=== PATIENT | female | born 1930 | race Hispanic/Latino ===

== ENCOUNTER 2017-04-19 18:56 | Inpatient (IN) | payer MEDICARE ==
[2017-04-19 19:10] VITALS: BMI 18.8
[2017-04-19 20:42] LABS: BASO # 0.03 K/mm3 (0.0-2.0); BASO % 0.4 % (0.0-3.0); GRAN # 4.07 (1.4-6.5); GRAN % 53.3 % (50.0-68.0); HEMOGLOBIN 10.9 g/dL (12.0-16.0); LYMPH % 38.7 % (22.0-35.0); MEAN CELL VOLUME 92.5 fl (80.0-105.0); MEAN CORPUSCULAR HEMOGLOBIN 29.1 pg (25.0-35.0); MEAN CORPUSCULAR HGB CONC 31.4 g/dl (31.0-37.0); MEAN PLATELET VOLUME 10.1 fl (7.0-11.0); MONO # 0.6 (0.1-0.6); MONO % 7.6 % (1.0-6.0); RBC 3.75 10^6/uL (3.5-6.1); RED CELL DISTRIBUTION WIDTH 16.4 % (11.5-14.5); WHITE BLOOD COUNT 7.6 10^3/ul (4.5-11.0)
[2017-04-19 20:53] LABS: ALB/GLOB RATIO 1.2 (1.1-1.8); ALBUMIN 3.7 g/dL (3.0-4.8); ALT/SGPT 34 U/L (7-56); AST/SGOT 28 U/L (14-36); BLOOD UREA NITROGEN 29 mg/dL (7-21); CALCIUM 9.9 mg/dL (8.4-10.5); GFR AFRICAN-AMERICAN > 60; GFR NON-AFRICAN AMERICAN 59
[2017-04-19 21:06] LABS: ACETAMINOPHEN < 10.0 ug/ml (10.0-20.0); SALICYLATE < 1 mg/dL (2.0-20.0)
[2017-04-19 23:04] LABS: URINE BILIRUBIN NEGATIVE (NEGATIVE); URINE BLOOD TRACE-INTACT (NEGATIVE); URINE GLUCOSE (UA) NEGATIVE (NEGATIVE); URINE LEUKOCYTE ESTERASE SMALL Leu/uL (NEGATIVE); URINE NITRATE NEGATIVE (NEGATIVE); URINE PROTEIN TRACE mg/dL (<30 mg/dL); URINE UROBILINOGEN 0.2 E.U./dL (<1 E.U./dL)
[2017-04-19 23:08] LABS: URINE APPEARANCE SL CLOUDY (CLEAR); URINE COLOR YELLOW (YELLOW)
[2017-04-19 23:15] LABS: URINE BACTERIA MOD (NEG); URINE FINE GRANULAR CAST 0 - 2 /hpf (0-2); URINE WBC 25 - 30 /hpf (0-6)
[2017-04-19 23:42] LABS: BARBITURATES, UR NEGATIVE (NEGATIVE); BENZODIAZEPINES, UR NEGATIVE (NEGATIVE); OPIATES, UR NEGATIVE (NEGATIVE); PHENCYCLIDINE, UR NEGATIVE (NEGATIVE)
--- NOTE | 2017-04-20 01:00 | ED PDOC ---
Arrival/HPI <Baldo Medrano - Last Filed: 04/20/17 01:36> - General Historian: Patient, Correction <Purnima Camacho - Last Filed: 04/20/17 02:43> - General Chief Complaint: Psychiatric Evaluation Time Seen by Provider: 04/19/17 19:46 - History of Present Illness Narrative History of Present Illness (Text): 04/20/17 00:50 86-year-old female with a history of dementia and COPD presents today sent in from [facility] for evaluation of aggressive behavior. Patient denies any complaints. Patient is alert only to person. Denies chest pain or shortness of breath denies abdominal pain. Denies urinary symptoms. Patient states she does not know where she is or why she is here. (Purnima Camacho) Past Medical History - Provider Review Nursing Documentation Reviewed: Yes - Travel History Have you recently traveled outside [place] w/in the past 3 mons?: No - Tetanus Immunization Tetanus Immunization: Unknown - Reproductive Menopause: No - Cardiac Hx Cardiac Disorders: Yes Hx Congestive Heart Failure: Yes Hx Hypertension: Yes Other/Comment: cardiomyopathy,mitral valve insufficiency - Pulmonary Hx Respiratory Disorders: Yes Hx Chronic Obstructive Pulmonary Disease (COPD): Yes - Neurological Hx Neurological Disorder: Yes Hx Dementia: Yes Hx Seizures: Yes Other/Comment: cognitive communication deficit - Gastrointestinal Hx Gastrointestinal Disorders: Yes Hx Gastroesophageal Reflux: Yes - Psychiatric Hx Substance Use: No <Purnima Camacho - Last Filed: 04/20/17 02:43> Family/Social History - Physician Review Nursing Documentation Reviewed: Yes Family/Social History: Unknown Family HX Smoking Status: Unknown If Ever Smoked Hx Alcohol Use: No Hx Substance Use: No <Purnima Camacho - Last Filed: 04/20/17 02:43> Allergies/Home Meds <Baldo Medrano - Last Filed: 04/20/17 01:36> <Purnima Camacho - Last Filed: 04/20/17 02:43> Allergies/Adverse Reactions: Allergies No Known Allergies Allergy (Verified 04/19/17 19:09) Review of Systems - Review of Systems Systems not reviewed;Unavailable: Altered Mental Status Respiratory: absent: SOB, Cough Cardiovascular: absent: Chest Pain Gastrointestinal: absent: Abdominal Pain, Vomiting Genitourinary Female: absent: Dysuria, Frequency Musculoskeletal: absent: Arthralgias, Back Pain Skin: absent: Rash Neurological: absent: Headache <Purnima Camacho - Last Filed: 04/20/17 02:43> Physical Exam Vital Signs Reviewed: Yes Temperature: Afebrile Blood Pressure: Normal Pulse: Regular Respiratory Rate: Normal Appearance: Positive for: Well-Appearing, Non-Toxic, Comfortable Pain Distress: None Mental Status: Positive for: other (alert x 1) - Systems Exam Head: Present: Atraumatic Mouth: Present: Moist Mucous Membranes Neck: Present: Normal Range of Motion Respiratory/Chest: Present: Clear to Auscultation, Good Air Exchange. No: Respiratory Distress, Accessory Muscle Use Cardiovascular: Present: Regular Rate and Rhythm, Normal S1, S2. No: Murmurs Abdomen: No: Tenderness, Distention, Rebound, Guarding Back: Present: Normal Inspection Upper Extremity: Present: Normal ROM Lower Extremity: Present: Normal ROM Skin: Present: Warm, Dry, Normal Color. No: Rashes Psychiatric: Present: Alert, Oriented x 3 <Purnima Camacho - Last Filed: 04/20/17 02:43> Vital Signs Temp Pulse Resp BP Pulse Ox 04/19/17 19:32 97.7 F 98 H 18 142/84 99 Medical Decision Making <Baldo Merdano - Last Filed: 04/20/17 01:36> <Purnima Camacho - Last Filed: 04/20/17 02:43> ED Course and Treatment: 04/20/17 02:32 86-year-old female presents for psychiatric evaluation. Patient is alert only to person. Denies any complaints CBC within normal limits CMP within normal limits Urinalysis shows positive nitrates cxr; no infiltrate blood cultures urine cultures pt with UTI; will start rocephin; pt with ams hx of dementia; placed on 1:1. will admit observational status for UTI , AMS, with psych and neuro consult. case discussed with dr. stroud; accepts observational status admission. impression; uti, ams admit observational status to med/surg (Purnima Camacho) - Lab Interpretations Lab Results: 04/19/17 20:30 04/19/17 20:30 Lab Results 04/19/17 22:50: Urine Opiates Screen Negative, Urine Methadone Screen Negative, Ur Barbiturates Screen Negative, Ur Phencyclidine Scrn Negative, Ur Amphetamines Screen Negative, U Benzodiazepines Scrn Negative, U Oth Cocaine Metabols Negative, U Cannabinoids Screen Negative 04/19/17 22:50: Urine Color Yellow, Urine Appearance Sl cloudy, Urine pH 6.0, Ur Specific [place] >= 1.030, Urine Protein Trace H, Urine Glucose (UA) Negative , Urine Ketones Trace H, Urine Blood Trace-intact H, Urine Nitrate Negative, Urine Bilirubin Negative, Urine Urobilinogen 0.2, Ur Leukocyte Esterase Small H , Urine RBC 2 - 5, Urine WBC 25 - 30, Ur Epithelial Cells 4 - 5, Urine Bacteria Mod, Fine Granular Casts 0 - 2 04/19/17 20:30: Alcohol, Quantitative < 10 04/19/17 20:30: Salicylates < 1 L, Acetaminophen < 10.0 L 04/19/17 20:30: Sodium 141, Potassium 3.9, Chloride 109 H, Carbon Dioxide 21, Anion Gap 15, BUN 29 H, Creatinine 0.9, Est GFR ( Amer) > 60, Est GFR ( Non-Af Amer) 59, Random Glucose 91, Calcium 9.9, Total Bilirubin 0.3, AST 28, ALT 34, Alkaline Phosphatase 108, Total Protein 6.8, Albumin 3.7, Globulin 3.0, Albumin/Globulin Ratio 1.2 04/19/17 20:30: WBC 7.6, RBC 3.75, Hgb 10.9 L, Hct 34.7 L, MCV 92.5, MCH 29.1, MCHC 31.4, RDW 16.4 H, Plt Count 215, MPV 10.1, Gran % 53.3, Lymph % (Auto) 38.7 H, [place] % (Auto) 7.6 H, Eos % (Auto) 0.0 L, Baso % (Auto) 0.4, Gran # 4.07 , Lymph # (Auto) 3.0, [place] # (Auto) 0.6, Eos # (Auto) 0.0, Baso # (Auto) 0.03 - RAD Interpretation Radiology Orders: 04/19/17 19:47 CHEST PORTABLE [RAD] Stat - PA / HIDE SORTER / Resident Statement KATERYNA has reviewed & agrees with the documentation as recorded. KATERYNA has examined the patient and agrees with the treatment plan. <Baldo Medrano - Last Filed: 04/20/17 01:36> Disposition/Present on Arrival <Baldo Medrano - Last Filed: 04/20/17 01:36> - Present on Arrival Any Indicators Present on Arrival: No History of DVT/PE: No History of Uncontrolled Diabetes: No Urinary Catheter: No History of Decub. Ulcer: No History Surgical Site Infection Following: None - Disposition Have Diagnosis and Disposition been Completed?: Yes Disposition Time: 02:42 Patient Plan: Observation <Purnima Camacho - Last Filed: 04/20/17 02:43> - Disposition Diagnosis: Urinary tract infection, Altered mental status Disposition: HOSPITALIZED Condition: FAIR
[2017-04-20] MEDS ORDERED: cefTRIAXone 1 gm 1 GM/100 ML BAG IVPB STA (02:32)
--- NOTE | 2017-04-20 08:38 | RAD ---
HISTORY: pes eval COMPARISON: No prior. FINDINGS: LUNGS: Dense likely pleural calcifications seen scattered left greater than right mid lung zones and likely at the right greater than left base as well. A definite infiltrate is not identified although would be difficult to completely exclude one underlying left sided pleural calcifications near the perihilar region. Clinically correlate further. PLEURA: No significant pleural effusion identified, no pneumothorax apparent. Pleural calcifications as discussed above. CARDIOVASCULAR: Mild cardiomegaly is suspected however follow-up technique limits evaluation. No pulmonary vascular derangement identified. OSSEOUS STRUCTURES: No significant abnormalities. VISUALIZED UPPER ABDOMEN: Normal. OTHER FINDINGS: None. IMPRESSION: Multifocal pleural calcifications are identified concentrated at the bilateral medial low mid lung zones bilaterally, left greater than right and likely minimally at the bilateral bases as well. Underlying infiltrate or atelectasis is difficult to completely exclude left perihilar region though this is not definite. Clinically correlate further. At least borderline cardiomegaly is suggested. No pulmonary vascular derangement.
--- NOTE | 2017-04-20 09:40 | CARD ---
APPROVED REPORT EKG Measurement Heart [id number] <Conclusion> Normal sinus rhythm Left axis deviation Left bundle branch block
--- NOTE | 2017-04-20 16:11 | CON ---
DATE: 04/20/2017 PULMONARY CONSULTATION REASON FOR CONSULTATION: Abnormal chest x-ray. REFERRING PHYSICIAN: Bear Gordillo DO HISTORY OF PRESENT ILLNESS: History was obtained via extensive discussion with the emergency room nurse. I have also reviewed the chart at length. The patient does not appear to be an adequate historian. The patient is an 86-year-old female, with past medical history significant for chronic obstructive pulmonary disease, hypertension, who presents [facility] for evaluation of aggressive behavior. In the emergency room, the patient was also noted to have a urinary tract infection. She was thus admitted for additional evaluation. Again, I did discuss the case with the emergency room nurse at length. There is no history of shortness of breath at rest, dyspnea on exertion, cough, or sputum production. There is also no history of chest pain, coughing up of blood, or chest pain - made worse with deep respirations. There is no history of temperatures, chills or infectious exposure. There is no history of night sweats, weight loss or appetite change prior to the above events. No history of leg or calf pains. No history of syncope or diaphoresis. No history of recent travel or trauma. REVIEW OF SYSTEMS: No history of nausea, vomiting or diarrhea. No acute urinary symptoms. No new musculoskeletal complaints. Rest of the review of systems negative. ALLERGIES: NO KNOWN ALLERGIES. SOCIAL HISTORY: Positive for tobacco and negative for alcohol. FAMILY HISTORY: No inheritable diseases. HOME MEDICATIONS: Not listed in the current chart. PHYSICAL EXAMINATION: GENERAL: The patient appears very comfortable this morning. She is not short of breath at rest. VITAL SIGNS: Temperature is 97.8, pulse 74, respirations 18, blood pressure 149/46. Oxygen saturation on room air is 96-99%. HEENT: Normocephalic, atraumatic. No JVD. CARDIOVASCULAR: Systolic ejection murmur at the lower left sternal border. No S3 gallop. LUNGS: Clear bilaterally. EXTREMITIES: No clubbing, cyanosis or edema. Calves are nontender to palpation. GI: Abdomen is soft, nontender and nondistended. Bowel sounds are positive. SKIN: No acute rash. NEUROLOGIC: Limited at the present time. PERTINENT LABORATORY DATA: Chest x-ray was done yesterday and reviewed. There are chronic-appearing bilateral pleural calcifications. There are no acute infiltrates. CBC: White count 7.6, hemoglobin 10.9, hematocrit 34.7, platelets of 215,000. Complete metabolic profile: Chloride 109, BUN 29. Rest of the metabolic profiles within normal limits. Urinalysis: Urine bacteria moderate, urine leukocyte esterase - small. IMPRESSION: 1. Altered mental status. 2. Urinary tract infection. 3. Chronic obstructive pulmonary disease. 4. Abnormal chest x-ray. PLAN: Again, I did discuss the case with the emergency room nurse at length. The patient presents to [facility] - for evaluation of aggressive behavior. In the emergency room, the patient was diagnosed with urinary tract infection, and thus admitted. At this point in time, there is no history of any pulmonary symptoms. The patient's lungs are clear on physical exam. Oxygen saturation on room air is 96-99%. I did review the chest x-ray as above. There are chronic-appearing bilateral pleural calcifications noted. The patient does probably have some history of asbestos exposure. Again, I do not appreciate any new or significant infiltrates. At this point in time, no additional pulmonary intervention is needed or warranted. I will thus follow up on this patient again as requested. Thank you very much for this pulmonary consultation. I will discuss the above with Dr. Gordillo. Barrie Seals MD MTDD
--- NOTE | 2017-04-20 17:57 | CON ---
DATE: 04/20/2017 NEUROLOGY CONSULTATION CHIEF COMPLAINT: Altered mental status. HISTORY OF PRESENT ILLNESS: History was obtained by extensive discussion with ER nurse as well as the chart since the patient is a poor historian. She is an 86-year-old woman with past medical history of chronic obstructive pulmonary disease, hypertension, who presented to [facility], transferred from a group home for evaluation of aggressive behavior. In the ER, she was noted to have a mild urinary tract infection for which she is on antibiotics. She denies any change in sense of vision, taste, or smell. Denies any history of syncope or diaphoresis. No recent travel or trauma. No seizure-like episodes. She has definitely cognitive impairment during my neuro examination. In addition, her oxygen saturation is 99%. Chest x-ray was done yesterday and reviewed. There is chronic appearing bilateral pleural calcifications, no acute infiltrates. Currently, she knows person and place, she does not know the year. Recall after 5 minutes is 0 out of 3. Poor attention span. Slow thought process and came with moderate cognitive impairment. PAST MEDICAL HISTORY: COPD, history of hypertension, and dementia. REVIEW OF SYSTEMS: A 14-point review of systems is negative except as per the HPI. SOCIAL HISTORY: No illicit drug use, smoking, or EtOH abuse. ALLERGIES: NO KNOWN DRUG ALLERGIES. MEDICATIONS: Reviewed by nurse's reconciliation sheet. PHYSICAL EXAMINATION: VITAL SIGNS: Temperature 97.8, pulse rate of 67, blood pressure /58, respiratory rate of 18, and oxygen saturations 100% on room air. GENERAL: The patient is sitting up in bed, in no acute distress. HEENT: Atraumatic and normocephalic. PERRLA. Extraocular muscles intact. NECK: Supple. No JVD, no adenopathy noted. LUNGS: Clear to auscultation. No adventitious sounds. HEART: S1 and S2. Normal rate and rhythm. No murmurs, rubs, or gallops. ABDOMEN: Soft, nontender, and nondistended. Bowel sounds present. EXTREMITIES: No clubbing. No cyanosis. Peripheral pulses 2+ felt bilaterally. NEUROLOGIC: The patient is alert and oriented to person and place, not much to month or year. Recall after 5 minutes is 0 out of 3. Poor attention span. Slow thought process. Gets agitated when asking too many questions. Speech is fluent without errors. Cranial nerves II through XII intact. Motor: Slightly increased tone throughout. Moves all extremities equally. No pronator drift seen. Sensory: Withdraws to localized noxious stimulus. Light touch intact bilaterally. Proprioception is intact bilaterally. DTRs are 1+ throughout. Coordination and gait deferred for now. LABORATORY DATA: Sodium 141, potassium 3.9, chloride 109, carbon dioxide 21, BUN of 29, creatinine 0.9, random glucose of 91. ASSESSMENT AND PLAN: This is an 86-year-old woman with past medical history of chronic obstructive pulmonary disease, hypertension, and cognitive impairment, came from group home for aggressive behavior, most likely it is urinary tract infection exacerbating delirium superimposed on dementia with behavior disturbance. CAT scan of the head showed no acute intracranial abnormalities. She is clinically stable. If she gets agitated at night, could consider a low-dose Seroquel at 12.5 p.o. at nighttime. At this time, recommend: 1. To treat her mild UTI. 2. She is mildly dehydrated, give her IV hydration. 3. Thiamine 100 mg p.o. daily for neuronal cortical activation. 4. Delirium precautions. 5. Avoid sedative medications and get PT and OT evaluation. Once again, thank you for this consult. Chon Brennan MD
--- NOTE | 2017-04-20 19:22 | HP ---
HISTORY OF PRESENT ILLNESS: I was called down to the Emergency Room to look at this nice 86-year-old female, who is completely confused. She is [facility] in from a [facility]. She is an 86-year-old female with history of dementia and COPD, who presents with aggressive behavior and confusion. She is seen in the Emergency Room, not knowing what is going on and where she is or where she is from. PAST MEDICAL HISTORY: CHF, cardiomyopathy, mitral valve insufficiency, hypertension, COPD, dementia, seizures, cognitive communication deficit, gastrointestinal disorders or GERD. FAMILY HISTORY: Unknown family history. SOCIAL HISTORY: No alcohol, no drugs and never smoked. ALLERGIES: NO KNOWN DRUG ALLERGIES. MEDICATIONS: We have no medicine list with us at all. REVIEW OF SYSTEMS: She has altered mental status. She cannot answer questions but she is not short of breath, no cough. No chest pain, no abdominal pain. No nausea, vomiting or problems urinating. No arthralgias. No apparent rashes, no headaches. She is alert, confused, well appearing. PHYSICAL EXAMINATION: HEENT: Head is atraumatic, normocephalic. HEART: Regular rate. Normal S1, S2. LUNGS: Decreased breath sounds with clear to auscultation. ABDOMEN: Soft, nontender. Positive bowel sounds. No guarding, no rebound. EXTREMITIES: No edema. NEUROLOGIC: She is alert and oriented x1 maybe. VITAL SIGNS: Temperature 97.7, pulse 98, respiratory rate 18, blood recqhmhh113/84, 99% O2 sat. LABORATORY DATA: She had multiple tests. She has urine, which has moderate bacteria. Toxicology, which is clean. She has 141 sodium, potassium 3.9, BUN 29, creatinine 0.9, GFR is greater than 59, sugar is 91, calcium is 9.9, total bilirubin is 0.3, AST is 28, ALT is 34, alkaline phosphatase 108, total protein 6.8, albumin is 3.7. White count is 7.6, hemoglobin 10.9, hematocrit 34.7, platelets of 215. She has a chest x-ray, which shows multifocal pleural calcifications, bilateral bases; underlying infiltrates; borderline cardiomegaly. She was consult with Neurology for confusion, Infectious Disease for infections, Pulmonary for her possible pneumonia and Psychiatry for aggressive behavior. So be needed to be changed to inpatient status. It will take us more than 2 days to get her improved. We will check her labs tomorrow. Change in mentation, confusion, urinary tract infection, pneumonia. Bear Gordillo DO
[2017-04-20] MEDS ORDERED: Pneumococcal 23-Valent Vaccine IM ONE (21:02)
[2017-04-20] MEDS ORDERED: Influenza Vaccine 60 mcg/0.5 mL SYR (4YR UP) IM ONE (21:02)
[2017-04-20] MEDS: Cefepime 1gm in NS 100ml 1 GM/100 ML BAG IVPB SCH (22:14)
--- NOTE | 2017-04-21 05:38 | HP ---
HISTORY OF PRESENT ILLNESS: I saw her this morning in the ER. She comes in with a history from the [place] [facility] of aggressive behavior. She is presently confused. Difficult to have a conversation with. PAST MEDICAL HISTORY: She has a past medical history of dementia, COPD, CHF, cardiomyopathy, mitral valve insufficiency, hypertension, COPD, dementia, seizures, cognitive communication deficit, gastroesophageal reflux. FAMILY HISTORY: Unknown. SOCIAL HISTORY: Questionable history of smoking. No alcohol. No drugs. ALLERGIES: NO KNOWN DRUG ALLERGIES. MEDICATIONS: She takes lisinopril, Lasix, potassium, aspirin. REVIEW OF SYSTEMS: She has altered mental status. No apparent shortness of breath,cough, chest pain, abdominal pain. No nausea or vomiting. No arthralgias. No rashes. No headaches. PHYSICAL EXAMINATION: GENERAL: She is alert, talking, confused, well appearing, non toxic, at this time not combative. VITAL SIGNS: 97.7 temperature, 98 pulse, 18 respiratory rate, 142/84 blood pressure, O2 sat on room air. HEENT: Head is atraumatic, normocephalic. Extraocular muscles are intact. Throat is moist. NECK: Supple. HEART: Regular rate. Normal S1 and S2. LUNGS: Decreased breath sounds ABDOMEN: Soft, nontender. Positive bowel sounds. No guarding. No rebound. No CVA tenderness. EXTREMITIES: With no edema. SKIN: Warm and dry. No apparent ulcers or rashes appreciated. NEUROLOGIC: Alert and oriented x1. LABORATORY DATA: She had multiple tests. She has a urine drug screen which is normal. Urine, which has moderate bacteria for UTI. Sodium 141, potassium 3.9, BUN 29, creatinine 0.9, GFR greater than 60, sugar is 91, calcium is 11.9. Total bilirubin is 0.3, AST is 20, ALT of 34, alkaline phosphatase 108. Total protein is 6.8. Albumin is 3.7. White count is 7.6, hemoglobin 10.9, hematocrit 34.7, platelets are 215. She had a chest x-ray, which showed multifocal pleural calcifications at the bilateral medial lobe midlung zones, left greater than right and likely at the bilateral bases as well. Underlying infiltrates in perihilar region. She is here with possible pneumonia, urinary tract infection, change in mentation, combative behavior. She got consults from Neurology, Infectious Disease, Pulmonology and Psychiatry. To be on her aspirin, Rocephin, Seroquel, Zestril. She got physical therapy in the unit. We will see how well we can get her back to normal and get her back to the [place] [facility]. Bear Gordillo DO MTDLilly
--- NOTE | 2017-04-21 06:15 | CON ---
DATE: 04/20/2017 The patient was seen early this morning in the emergency room. CHIEF COMPLAINT: Weakness. HISTORY OF PRESENT ILLNESS: This is an 86-year-old female with a history of dementia, chronic obstructive lung disease from the snf and change in behavior was noted, was sent to the emergency room for further treatment. The patient has a history of congestive heart failure, COPD, coronary artery disease, history of seizures, chronic obstructive lung disease, GERD, dementia, admitted with a diagnosis of altered mental status and urinary tract infection. Infectious Disease consultation requested. REVIEW OF SYSTEMS: Reveals no fever has been documented and no chest pain, no abdominal pain, diarrhea or constipation. PAST MEDICAL HISTORY: Significant for dementia, COPD, congestive heart failure, coronary artery disease, seizures, GERD. PAST SURGICAL HISTORY: Noncontributory. ALLERGIES: THE PATIENT HAS NO KNOWN ALLERGIES. MEDICATIONS: In the snf are reviewed, include Lasix, lisinopril, pantoprazole. PHYSICAL EXAMINATION: VITAL SIGNS: On exam, the patient's temperature is 97, blood pressure is 149/40, respiratory rate of 18, heart rate was up to 98. HEENT: Unremarkable. NECK: Supple. LUNGS: Have decreased breath sounds. HEART: Normal S1, S2. ABDOMEN: Soft, nontender. LABORATORY DATA: Reveals a white count of 7.6, hemoglobin of 10, platelets of 215, granulocytes of 53%, BUN of 29, creatinine of 0.9. Urinalysis reveals to be positive for 25-30 and moderate bacteria. Microbiology is pending. ASSESSMENT AND PLAN: This is an 86-year-old female, snf patient with a history of dementia, chronic obstructive lung disease, coronary artery disease, seizures, gastroesophageal reflux disease, dementia, admitted with a change of mental status, more aggressive behavior and with positive urinalysis, unclear whether she has any urinary symptoms. 1. Urinary tract infection. We will order Maxipime 1 g IV q. 8 hours pending blood cultures, urine cultures, clinical response. We will make further recommendations. The patient did have a chest x-ray, which was reported by Dr. Miguel Jaime and . consultation is reviewed and appreciated. We will follow closely with you. Pending panculture results and clinical response on cefepime. Ramone Grant MD
[2017-04-21 07:32] LABS: MEAN CELL VOLUME 92.2 fl (80.0-105.0); MEAN CORPUSCULAR HEMOGLOBIN 29.4 pg (25.0-35.0); MEAN CORPUSCULAR HGB CONC 31.9 g/dl (31.0-37.0); MEAN PLATELET VOLUME 10.3 fl (7.0-11.0); RBC 3.74 10^6/uL (3.5-6.1); WHITE BLOOD COUNT 6.9 10^3/ul (4.5-11.0)
[2017-04-21 08:03] LABS: ALB/GLOB RATIO 1.1 (1.1-1.8); ALBUMIN 3.2 g/dL (3.0-4.8); ALT/SGPT 21 U/L (7-56); AST/SGOT 26 U/L (14-36); BLOOD UREA NITROGEN 19 mg/dL (7-21); CALCIUM 9.4 mg/dL (8.4-10.5); GFR AFRICAN-AMERICAN > 60; GFR NON-AFRICAN AMERICAN > 60
[2017-04-21] MEDS: Pantoprazole 40 mg EC Tab PO SCH ×2 (11:21→11:43)
[2017-04-21] MEDS: Cefepime 1gm in NS 100ml 1 GM/100 ML BAG IVPB SCH (14:00)
[2017-04-21] MEDS ORDERED: Vancomycin 1gm in NS 250ml 1 GM/250 ML BAG IVPB STA (23:14)
--- NOTE | 2017-04-22 02:58 | PN ---
DATE: 04/21/2017 SUBJECTIVE: Patient is seen in bed, in no acute distress, nontoxic. PHYSICAL EXAMINATION: VITAL SIGNS: Temperature of 98, blood pressure 140/50, respiratory rate 20, heart rate of 81. HEENT: Unremarkable. NECK: Supple. LUNGS: Decreased breath sounds. HEART: Normal S1, S2. ABDOMEN: Soft, nontender. LABORATORY DATA: Reveals a white count of 6.9, hemoglobin of 11, platelets of 204. Chemistry revealed BUN of 19, creatinine 0.8. Urinalysis is noted. Microbiology reveals the urine cultures to have gram-positive cocci. Final identification and sensitivity is pending. ASSESSMENT AND PLAN: This is an 86-year-old female with history of dementia, chronic obstructive lung disease, at longterm, change of behavior, who is admitted with gram-positive cocci urinary tract infection, currently on Maxipime. We will give one dose of vancomycin and wait for further identification and sensitivity. Patient is admitted with past medical history of dementia, chronic obstructive lung disease, coronary artery disease, seizures, gastroesophageal reflux disease, and change in mental status, more aggressive behavior, and positive urinalysis. We will give a dose of vancomycin. Awaiting for identification of the gram-positive cocci in the urine. Ramone Grant MD
[2017-04-22 06:51] LABS: HEMOGLOBIN 10.5 g/dL (12.0-16.0); MEAN CELL VOLUME 90.9 fl (80.0-105.0); MEAN CORPUSCULAR HEMOGLOBIN 29.8 pg (25.0-35.0); MEAN CORPUSCULAR HGB CONC 32.8 g/dl (31.0-37.0); MEAN PLATELET VOLUME 10.1 fl (7.0-11.0); RBC 3.52 10^6/uL (3.5-6.1); RED CELL DISTRIBUTION WIDTH 15.8 % (11.5-14.5); WHITE BLOOD COUNT 6.9 10^3/ul (4.5-11.0)
[2017-04-22 07:02] LABS: ALBUMIN 3.1 g/dL (3.0-4.8); ALT/SGPT 24 U/L (7-56); AST/SGOT 28 U/L (14-36); BLOOD UREA NITROGEN 22 mg/dL (7-21); CALCIUM 9.1 mg/dL (8.4-10.5); GFR AFRICAN-AMERICAN > 60; GFR NON-AFRICAN AMERICAN > 60
[2017-04-22] MEDS: Cefepime 1gm in NS 100ml 1 GM/100 ML BAG IVPB SCH ×4 (08:25→14:53)
--- NOTE | 2017-04-22 08:47 | CON ---
DATE: 04/21/2017 She is being seen today for a consultation. PRESENTATION: The patient is an 86-year-old white female, seen at bedside, one-to-one in attendance. The patient was admitted to the hospital from [facility] on 04/20/2017. She has a history of dementia and COPD and was sent in for an evaluation of aggressive behavior. She was found to have a urinary tract infection in the emergency room of gram-positive cocci, which is currently being treated for. Consultation was called due to altered mental status. The patient when seen was extremely confused. She answered to her name, believed me to be related to her that we were at home. She was very concerned that I was covered with bugs as she was concerned about her one-to-one. She said there was bugs everywhere that we are going to from all the bug bites, very, very concerned and very, very confused. She was absolutely unable to hold any kind of conversation or respond appropriately to any questions. She just kept going along her track of what she felt was going on and whom she believed me to be. PHYSICAL EXAMINATION: VITAL SIGNS: Current vital signs include temperature of 97.8, blood pressure of 122/38, respiratory rate of 20, and O2 sat of 96%. CURRENT MEDICATIONS: Include Seroquel 12.5 mg one at bedtime, Protonix, Zestril, Colace, Maxipime, and aspirin. I added a p.r.n. of lorazepam 0.5 mg b.i.d. p.r.n. p.o. or IM as it appears that the patient may become agitated. According to the nurses' notes, she has been fairly cooperative with the one-on-one there; however, she has pulled out her IV and has not allowed it to be restored. According to Social Work notes, she is able to return to the [facility] once medically cleared. MENTAL STATUS EXAM: It was difficult to get a mental status on this patient. I could not get any kind of a history. She has no ability to be able to follow a conversation or respond appropriately. She really was very preoccupied by what she felt was going on, the bugs, and very concerned about health and safety of the people in her room. DIAGNOSTIC IMPRESSION: Dementia, probably further exacerbated by the presence of urinary tract infection. PLAN: The patient does not appear in terms of anything in her behavior to be suicidal or homicidal; however, she does have a one-to-one mostly for safety, and she is cooperative with this intervention. I did add a p.r.n. of Ativan should it be needed. She is on Seroquel at bedtime. We will continue to follow. Dr. Antoine will see this patient tomorrow. Thank you for the consult. Adry Mccullough APN Suzy Antoine MD
--- NOTE | 2017-04-22 08:50 | PN ---
DATE: 04/21/2017 SUBJECTIVE: I saw her sitting resting in bed. She has a one-to-one with psych issues. Worried about her. She is mentally. She has multiple consults, Neurology, Infectious Disease, Pulmonary. I also called in Psychiatry. She is alert and pleasant. PHYSICAL EXAMINATION: VITAL SIGNS: 97.8 temp, 71 pulse, 122/38 blood pressure, 20 respiratory rate, 96% O2 sat on room air, but confused. HEENT: Head is atraumatic, normocephalic. HEART: Regular rate. LUNGS: Decreased breath sounds, but clear. ABDOMEN: Soft. EXTREMITIES: No edema. MEDICATIONS: She is currently on aspirin, Colace, Maxipime, Protonix, Seroquel and Zestril. She has a 6.9 white count, 11 hemoglobin, 34.5 hematocrit with a 204 platelets. She has 140 sodium, potassium 3.8, BUN 19, creatinine 0.8, which is better, GFR is greater than 60, sugar is 64, calcium is 9.4, total bili is 0.4, AST is 26, ALT is 21, alk phos 111, total protein 6.3. Urine with moderate bacteria. ASSESSMENT AND PLAN: She is on intravenous antibiotics. She is on a one-to-one. She might need 5B. She has a urinary tract infection, possible pneumonia, chronic obstructive pulmonary disease history, change in mentation, confusion. Neurology said to treat her with the urinary tract infection, intravenous fluids, thiamine. Continue with aggressive treatment and care. Bear Gordillo DO MTDLilly
[2017-04-22] MEDS: Pantoprazole 40 mg EC Tab PO SCH (10:21)
[2017-04-22] MEDS ORDERED: Cefepime 1gm in NS 100ml 1 GM/100 ML BAG IVPB SCH (22:00)
--- NOTE | 2017-04-22 22:32 | PN ---
DATE: SUBJECTIVE: The patient is an 86-year-old female with history of Alzheimer dementia. The patient was sent from [facility] for evaluation of change in mental status and aggressive outbursts. The patient was found to have urinary tract infection and was started on antibiotics and was placed on medical floor. Presently, the patient is on one-to-one observation. The patient was initially seen by nurse practitioner, Ms. Mccullough. The patient was started on Seroquel at the nighttime. This chart writer is following up on this patient. The patient presented to be alert, confused. The patient does not know where she is. The patient was making statement "how would you feel if you would be 89 years old, I'm very confused and forgetful." The patient's answers were not related to the questions being asked. The patient was saying random things about Nenzel and about . Collateral information was obtained from the nursing staff as well as one-to-one. As per report, the patient did not sleep well, restless and confused but there is no agitation, no aggression. Medication compliance is good. At the same time, the patient has poor appetite. Vital signs seem to be stable. Temperature 98.6, pulse is 78, blood pressure 135/50, respirations 20, and oxygen saturation is 96. MEDICATIONS: Reviewed. Aspirin, cefepime, Colace, Zestril, Ativan, and Protonix. Seroquel will be increased to 25 mg at the nighttime. MENTAL STATUS EXAMINATION: As this chart writer described, the patient is very confused, randomly saying things which are not related to the topic of the conversation, intermittent eye contact. Thought process seems to be disorganized, tangential, and circumstantial. The patient was not able to comprehend questions about suicidal thoughts or plans. Insight and judgment seem to be very impaired. Impulses are unpredictable. IMPRESSION: Delirium on dementia, which seems to be mildly improving. PLAN: Continue current management. Continue current medications. Seroquel was increased to 25 mg at the nighttime. The patient is currently on one-to-one. Ativan p.r.n. started. Dr. Lange will follow up on this case over this weekend. Should you have any questions, give me a call back. Thank you very much for letting me participate in care of your patient. Suzy Antoine MD [facility] # [id number]
--- NOTE | 2017-04-22 23:44 | PN ---
DATE: 04/22/2017 SUBJECTIVE: The patient is in bed, in no acute distress, was seen earlier this morning in room 562, bed 2. PHYSICAL EXAMINATION: VITAL SIGNS: Temperature is 98, blood pressure is 130/40, respiratory rate of 20. HEENT: Examination of HEENT is unremarkable. NECK: Supple. LUNGS: Have decreased breath sounds. HEART: Normal S1 and S2. ABDOMEN: Soft, nontender. LABORATORY DATA: Laboratory examination reveals a white count of 6.9, hemoglobin of 10, platelets of 209. BUN of 22, creatinine of 0.8. Urinalysis is noted. Microbiology reveals the urine culture has Enterococcus faecalis. The blood cultures are negative. Enterococcus is sensitive to ampicillin. Review of orders revealed the patient to be on cefepime and was given a dose of vancomycin. The blood cultures are negative. ASSESSMENT AND PLAN: An 86-year-old female who has a history of dementia, chronic obstructive lung disease, [facility] patient, change of behavior, who was admitted with Enterococcus urinary tract infection. We will discontinue the cefepime and switch to p.o. ampicillin to complete the therapy for Enterococcus urinary tract infection at 500 mg p.o. q.i.d. x5 days. Ramone Grant MD
[2017-04-23 07:05] LABS: HEMOGLOBIN 10.5 g/dL (12.0-16.0); MEAN CELL VOLUME 93.2 fl (80.0-105.0); MEAN CORPUSCULAR HEMOGLOBIN 29.7 pg (25.0-35.0); MEAN CORPUSCULAR HGB CONC 31.9 g/dl (31.0-37.0); MEAN PLATELET VOLUME 10.3 fl (7.0-11.0); RBC 3.53 10^6/uL (3.5-6.1); RED CELL DISTRIBUTION WIDTH 16.1 % (11.5-14.5); WHITE BLOOD COUNT 7.8 10^3/ul (4.5-11.0)
[2017-04-23 07:28] LABS: ALBUMIN 3.2 g/dL (3.0-4.8); ALT/SGPT 24 U/L (7-56); AST/SGOT 21 U/L (14-36); BLOOD UREA NITROGEN 22 mg/dL (7-21); CALCIUM 9.2 mg/dL (8.4-10.5); GFR AFRICAN-AMERICAN > 60; GFR NON-AFRICAN AMERICAN 59
[2017-04-23] MEDS: Pantoprazole 40 mg EC Tab PO SCH (10:16)
--- NOTE | 2017-04-23 10:25 | PN ---
DATE: 04/23/2017 SUBJECTIVE: The patient is in bed, in no acute distress, nontoxic. PHYSICAL EXAMINATION VITAL SIGNS: Temperature is 97, blood pressure is 150/50, respiratory rate of 18. HEENT: Unremarkable. NECK: Supple. LUNGS: Have decreased breath sounds. HEART: Normal S1 and S2. ABDOMEN: Soft, nontender. LABORATORY DATA: Reveals a white count of 7.8, hemoglobin of 10, platelets of 200. Chemistries reveals a BUN of 22, creatinine of 0.9. Urinalysis is noted and microbiology reveals Enterococcus faecalis in the urine. ASSESSMENT AND PLAN: An 86-year-old female with a history of dementia, chronic obstructive lung disease, assisted patient, change of behavior with enterococcus urinary tract infection, on p.o. ampicillin 100 p.o. q.i.d. x5 days. Ramone Grant MD
--- NOTE | 2017-04-23 13:38 | PN ---
DATE: SUBJECTIVE: I do not see my progress note from yesterday. I know I did it and I saw her. Hopefully, it will populate by tomorrow, sometimes it delays, but for right now she is in the hospital bed. She is alert and confused. She has been trying get out of bed and had been very active over the past 24 hours. She is still on a one-to-one. Hoping for Psychiatry to help us not needing a one-to-one and they will be taking her to . PHYSICAL EXAMINATION: VITAL SIGNS: She has 97 temp, 69 pulse, 150/50 blood pressure, 20 respiratory rate, 98% O2 sat on room air. HEENT: Head is atraumatic, normocephalic. HEART: Regular rate. LUNGS: Clear to auscultation. ABDOMEN: Soft. EXTREMITIES: No edema. LABORATORY DATA: She has a 7.8 white count, 10.5 hemoglobin, 32.9 hematocrit with a 200 platelets. 143 sodium, potassium 3.8, BUN is 22, creatinine 0.9, GFR is 59, sugar is 95, calcium is 9.2, total bili is 0.3, AST is 21, ALT is 24, alk phos 87. MEDICATIONS: She is currently on ampicillin, aspirin, Ativan, Colace, Protonix, Seroquel and Zestril. ASSESSMENT AND PLAN: On the repeat lab tomorrow, CBC we could do a UA, C and S again. I am hoping that we can get help from Psychiatry, so we can get her off the one-to-one. Right now, from what I hear from the one-to-one people, she has been very agitated and acting out and still needs it. Emily Abreu who has delirium and dementia, change in mentation, urinary tract infection, chronic obstructive pulmonary disease. Bear Gordillo DO
--- NOTE | 2017-04-23 14:01 | CON ---
DATE: HISTORY OF PRESENT ILLNESS: The patient is an 86-year-old female with a history of Alzheimer dementia who is being seen on the medical floor by Psychiatry for altered mental status and aggressive outburst. The patient is likely suffering from delirium and her medications have recently been adjusted so that Seroquel was increased from 12.5 mg to 25 mg at bedtime; however, the patient was unable to take the medication last night due to agitation. The patient did wake up multiple times throughout the night and feels restless and attempting to hit her PCP. Continues to be unpredictable. She remains completely disoriented to month, year, location and circumstances. The patient's cefepime IV has been switched to ampicillin 500 mg q.i.d. yesterday. PHYSICAL EXAMINATION VITAL SIGNS: Reviewed and they were temperature 97, pulse 69, blood pressure 150/50, and respirations 20 at 07:30 this morning. LABORATORY DATA: Labs were also reviewed. CBC was notable for hemoglobin and hematocrit of 10.5 and 32.9 respectively. Chemistry 14 derangements include chloride of 110, BUN of 22. MEDICATIONS: Relevant psychiatric medications include Ativan 0.5 mg p.o. b.i.d. p.r.n., the patient received zero doses and Ativan 0.5 mg IM b.i.d. p.r.n., the patient received zero doses. Seroquel 25 mg p.o. at bedtime. The patient did not receive last night dose due to being lethargic. Of note, the patient did receive Seroquel 12.5 mg p.o. at bedtime three days ago. IMPRESSION: Alzheimer dementia was complicated by delirium. PLAN: We will continue with current management including Seroquel at 25 mg at bedtime. Hopefully, the patient will be a little bit more alert today and will be able to take Seroquel dose tonight to help this nighttime confusion and agitation. Psychiatry will continue to follow up with the patient and monitor her behavior and tolerance to medication. Psychiatry will follow up with the patient on 04/24/2017. Rober Lange MD [facility] # [id number]
[2017-04-24] MEDS: Pantoprazole 40 mg EC Tab PO SCH ×2 (09:05→14:47)
--- NOTE | 2017-04-24 12:31 | PN ---
DATE: SUBJECTIVE: I saw her this morning resting comfortably in bed. She actually ate breakfast this morning, which is very good for her. She was up most of the night. She still needs a 1:1, waiting for Psychiatry to help her. MEDICATIONS: She is on ampicillin, aspirin, Ativan, Colace, Protonix, Seroquel, and Zestril. PHYSICAL EXAMINATION: VITAL SIGNS: She has a 97 temperature, 73 pulse, 117/41 blood pressure, 20 respiratory rate, 99% O2 sat on room air. She still needs 1:1. She is still up all night. She still cannot be left alone because it is unsafe. HEENT: Head: Atraumatic, normocephalic. Throat is moist. NECK: Supple. HEART: Regular rate. LUNGS: Decreased breath sounds, but clear. ABDOMEN: Soft. EXTREMITIES: No edema. LABORATORY DATA: She has a 7.8 white count, 10.5 hemoglobin, 32.9 hematocrit with 200 platelets. Diydol414, potassium 3.8, BUN 22, creatinine 0.9, GFR is 59, sugar is 95, calcium is 9.2, total bili is 0.3, AST is 21, ALT is 24, alkaline phosphatase 87, total protein 6.3. We are hoping to get her off from 1:1, once we get the okay from Psychiatry. I would like to see maybe more adjustment in medications because it is the same thing every night. She is up at night, very dangerous to herself. I am glad she is eating this morning. She has Alzheimer's dementia with delirium, agitation. Continue aggressive treatment and care on Ms. Abreu, also UTI and COPD. We will check her labs tomorrow. Hopefully, get her out of bed to chair. As per psychiatry to help us get her off from 1:1. Bear Gordillo DO
--- NOTE | 2017-04-24 12:50 | PN ---
DATE: SUBJECTIVE: The patient is in bed, in no acute distress, nontoxic. PHYSICAL EXAMINATION: VITAL SIGNS: Temperature is 97, blood pressure is 117/40, respiratory rate of 20. HEENT: Unremarkable. NECK: Supple. LUNGS: Have decreased breath sounds. HEART: Normal S1, S2. ABDOMEN: Soft, nontender. LABORATORY DATA: Reveals the patient's white count is 7.8, hemoglobin of 10. BUN of 22, creatinine 0.9. Urinalysis is noted. Microbiology reveals Enterococcus in the urine. Blood cultures have no growth. Review of orders reveals the patient to be on p.o. ampicillin. ASSESSMENT AND PLAN: An 86-year-old female with a history of dementia and chronic obstructive lung disease, snf patient, change of behavior, was admitted with Enterococcus urinary tract infection. Currently on p.o. ampicillin 500 mg p.o. four times a day. Three more days of therapy is left for a total of five package of ampicillin. Ramone Grant MD
--- NOTE | 2017-04-25 00:30 | CON ---
DATE: HISTORY OF PRESENT ILLNESS: Patient is an 86-year-old female with a history of Alzheimer's dementia, who is being seen on the medical floor by Psychiatry for altered mental status and aggressive outburst secondary to concurrent diagnosis of delirium. I reviewed the patient yesterday and again today. I also reviewed staff notes indicated that the patient has been difficult, paranoid and refusing medication on the unit. Seroquel was recently increased from 12.5 mg to 25 mg at bedtime; however, the patient had refused every dose at that time. Two nights ago, she attempted to strike and kick at the PCP, and last night again she refused her medications believing that the staffs were trying to poison her. This morning, she is overtly psychotic and barely acknowledges my presence despite being introduced myself, and asking several questions, she never directly responds to me, and when she does respond to me, it is completely irrelevant. Patient indicated there was a plane crash, plane crash, and she kept pointing to a corner of the room indicating that is where kids were. I tried to orient the patient regarding her current location, month, year, and circumstances. However, patient pauses then and says "that might be true; however, you're not gonna convince me that there aren't two alligators behind me." It is very very difficult if not impossible to have a productive interview with the patient due to her disorientation, confusion, and hallucination. Right now, she continues to be unpredictable and requires one-to-one. Her affect is irritable, distrusting, and dismissive; and her insight and judgment are poor. Vital signs and lab data were reviewed by this provider. PSYCHIATRIC MEDICATIONS: Include Ativan 0.5 mg p.o. b.i.d., Ativan 0.5 mg IM b.i.d. p.r.n., Seroquel 25 mg p.o. at bedtime, of which the patient did not receive any doses because she keeps refusing the medication. IMPRESSION: Alzheimer's dementia, complicated by concurrent delirium. PLAN: We will continue with current management including Seroquel 25 mg at bedtime. I will also add a very low dose of Haldol 0.25 mg IV q.4 p.r.n. for agitation. Psychiatry will continue to follow up her daily and try to elicit her trust; however, she is suffering from delirium, and delirium may take weeks to resolve on its own, and the patient is also further complicated by the fact that she has known dementia. Hopefully, she will be calmer, but if she does become agitated, perhaps the doses of Haldol will clear up her psychosis a little bit; however, we cannot give the Haldol against her will IV unless she is agitated. Information will be related to Dr. Antoine. Rober Lange MD
[2017-04-25 07:18] LABS: HEMOGLOBIN 11.7 g/dL (12.0-16.0); MEAN CELL VOLUME 92.9 fl (80.0-105.0); MEAN CORPUSCULAR HEMOGLOBIN 29.5 pg (25.0-35.0); MEAN CORPUSCULAR HGB CONC 31.8 g/dl (31.0-37.0); MEAN PLATELET VOLUME 10.6 fl (7.0-11.0); RBC 3.96 10^6/uL (3.5-6.1); RED CELL DISTRIBUTION WIDTH 15.9 % (11.5-14.5); WHITE BLOOD COUNT 9.1 10^3/ul (4.5-11.0)
[2017-04-25 08:10] LABS: ALBUMIN 3.6 g/dL (3.0-4.8); ALT/SGPT 23 U/L (7-56); AST/SGOT 48 U/L (14-36); BLOOD UREA NITROGEN 22 mg/dL (7-21); CALCIUM 9.6 mg/dL (8.4-10.5); GFR AFRICAN-AMERICAN > 60; GFR NON-AFRICAN AMERICAN 59
--- NOTE | 2017-04-25 08:33 | PN ---
DATE: 04/22/2017 SUBJECTIVE: I saw her this morning resting in bed. She was up whole night. She is very tired this morning. She still needs to be on a one-to-one. Feeling mentally. She is on aspirin, Ativan, Colace, cefepime IV, Protonix, Seroquel, vancomycin and Zestril. PHYSICAL EXAMINATION: VITAL SIGNS: She has a 98.6 temp, 78 pulse, 134/45 blood pressure, 20 respiratory rate, 96% O2 sat on room air. HEENT: Head is atraumatic, normocephalic. HEART: Regular rate. LUNGS: Clear to auscultation. ABDOMEN: Soft. EXTREMITIES: No edema. LABORATORY DATA: She has a 6.9 white count, 10.5 hemoglobin, 32 hematocrit with a 209 platelets. 143 sodium, potassium 3.6, BUN is 22, creatinine 0.8, GFR is greater than 60, sugar is 105, calcium is 9.1, total bili is 0.3, AST is 28, ALT is 24, alk phos 97, total protein 6.4. Urine was positive. Toxicology was negative. ASSESSMENT AND PLAN: She has a gram-positive cocci in the urine. She is being seen by Infectious Disease, by Neurology, Pulmonology and Psychiatry was consulted, waiting for to come to see and write a note. She is on a one-to-one for her safety and we will get her out of [id number] with some physical therapy. Continue aggressive treatment and care on her. She has a urinary tract infection, questionable pneumonia, she was confused, change of mentation. Bear Gordillo DO MTDLilly
--- NOTE | 2017-04-25 13:48 | PN ---
DATE: 04/25/2017 SUBJECTIVE: I saw her in her bathroom. She walked there okay. She is presently confused, refusing medications still. She had suicidal ideation and she wanted to kill herself in the past 12 hours. She is still not taking the medications. She says they are trying to poison her. I think she needs to be in a psychiatric facility or psychiatric program capable. I will talk to Psych about that. She has got some delirium and dementia, change in mental status, UTI, COPD. She is on oral antibiotics as per Infectious Disease. She does eat a little bit. She is walking some. She is mentally off and she needs a one-to-one to protect herself for patient safety. PHYSICAL EXAMINATION: VITAL SIGNS: She has a 97.2 temperature, 81 pulse, 144/51 blood pressure, 18 respiratory rate, 99% O2 sat on room air. HEENT: Head is atraumatic, normocephalic. HEART: Regular rate. LUNGS: Clear to auscultation. ABDOMEN: Soft. EXTREMITIES: No edema. MEDICATIONS: She is on ampicillin, aspirin, Ativan, Colace, Haldol, Protonix, Seroquel, and Zestril, but she is not taking the medications. LABORATORY DATA: She has a 9.1 white count, 11.7 hemoglobin, 36.8 hematocrit with 243 platelets. Sodium 143, potassium 3.8, BUN 22, creatinine 0.9, GFR is greater than 60, sugar is 95, calcium is 9.2. Total bilirubin is 0.3, AST is 21, ALT is 24, alkaline phosphatase 87, total protein 6.3. I will let for her to go to psychiatric floor or a psychiatric institute or back to her facility where they hopefully have a lock down unit or dementia unit. She is still on one-to-one. Wait for Psychiatry to help us. Finishing up the antibiotics. Bear Gordillo DO MTDD
--- NOTE | 2017-04-25 13:55 | PN ---
DATE: SUBJECTIVE: The patient is an 86-year-old female with history of dementia and COPD. [facility] of change in mental status and aggressive behavior. The patient was found to have urinary tract infection and was started on antibiotics. This typewriter aligner was involved into the patient's care because of altered mental status, paranoid ideations, which affected her medication compliance on the medical side. patient last Tuesday. Medications adjusted over the weekend. Dr. Lange was following the patient up. Notes reviewed and discussed with the nursing staff. As per nursing staff, the patient has episodes of confusion as well as paranoid ideation. Patient was refusing to take any medication because she was afraid that it was poisoned. Patient is not participating in treatment plan because of paranoia. This typewriter aligner is not sure if patient has power of corporate associate attorney or legal guardian. This typewriter aligner had prolonged conversation with case management, may need to contact [facility] to find out if patient has legal guardian or power of corporate associate attorney. This typewriter aligner attempted to speak to the patient, but patient is deeply sleeping, was able to open her eyes, but closed right back. Mental status examination is not possible. OBJECTIVE: VITAL SIGNS: Seem to be stable. Temperature 97.4, pulse is 82, blood pressure 148/54, respirations 20, oxygen is 99%. MEDICATIONS: Reviewed. The patient was not taking any antibiotics; Aspirin, Colace, lisinopril, also Protonix and Seroquel. LABORATORY DATA: Labs reviewed. Microbiology was positive for Enterococcus faecalis. IMPRESSION: Obviously, patient is in delirium stage which is related to urinary tract infection. Patient also has history of Alzheimer dementia. PLAN: This typewriter aligner implemented haloperidol 0.5 mg three times a day IM for psychosis. At present moment, patient is in delirium stage as well as paranoia, which affect patient's treatment. It should be considered to give IV antibiotics if medical team and infectious disease team are willing to do so. At the same time, this typewriter aligner had prolonged conversation with the case management office and social service manager to find out if patient has legal guardian or power of corporate associate attorney. Patient needs to be treated because patient lacks capacity to participate in treatment plan and is not making rational decisions for herself. Case will be discussed with Dr. Gordillo. Should you have any questions, give me a call back. Thank you very much for letting me participate in the care of your patient. Suzy Antoine MD
[2017-04-25] MEDS: Pantoprazole 40 mg EC Tab PO SCH (18:21)
[2017-04-26 07:10] LABS: HEMOGLOBIN 10.4 g/dL (12.0-16.0); MEAN CELL VOLUME 92.9 fl (80.0-105.0); MEAN CORPUSCULAR HEMOGLOBIN 29.4 pg (25.0-35.0); MEAN CORPUSCULAR HGB CONC 31.6 g/dl (31.0-37.0); MEAN PLATELET VOLUME 10.4 fl (7.0-11.0); RBC 3.54 10^6/uL (3.5-6.1); RED CELL DISTRIBUTION WIDTH 15.8 % (11.5-14.5); WHITE BLOOD COUNT 7.3 10^3/ul (4.5-11.0)
[2017-04-26 07:50] LABS: ALB/GLOB RATIO 1.1 (1.1-1.8); ALBUMIN 3.2 g/dL (3.0-4.8); ALT/SGPT 22 U/L (7-56); AST/SGOT 39 U/L (14-36); BLOOD UREA NITROGEN 27 mg/dL (7-21); CALCIUM 9.1 mg/dL (8.4-10.5); GFR AFRICAN-AMERICAN > 60; GFR NON-AFRICAN AMERICAN 59
[2017-04-26] MEDS: Pantoprazole 40 mg EC Tab PO SCH (13:09)
--- NOTE | 2017-04-26 14:40 | PN ---
DATE: 04/26/2017 SUBJECTIVE: She is resting comfortably in bed. She is still with one-to-one. She was able to take some of her medications yesterday, but she is not consistent. I am hoping we can discharge her. I have been trying to do that for the past few days. I was hoping that Psychiatry help us or go back to a facility where she came from. She is on ampicillin, aspirin, Ativan, Colace, Haldol, Protonix, Seroquel and Zestril. she is getting her medications on a regular basis. She is in bed. She told me she is not going to take her medications, but she is eating pretty good and she walks pretty good. PHYSICAL EXAMINATION VITAL SIGNS: She has a 97.4 temperature, 83 pulse, 155/52 blood pressure, 20 respiratory rate, 97% O2 saturation on room air. HEENT: Head is atraumatic, normocephalic. HEART: Regular rate and rhythm. LUNGS: Decreased breath sounds, but clear. ABDOMEN: Soft. EXTREMITIES: No edema. She is on a one-to-one. LABORATORY DATA: She has 7.3 white count, 10.4 hemoglobin, 32.9 hematocrit, and 214,000 platelets. Sodium 142, potassium 4.2, BUN 27, creatinine 0.9, GFR is greater than 60, sugar is 88, calcium 9.1. Total bilirubin is 0.3. AST is 39, ALT is 42, alkaline phosphatase 89, total protein is 6.1. She has been by Psychiatry, Infectious Disease. For now, she is getting Haldol IM. Waiting to see what we can do to help her get out of here and go back to her place where she lives. She has dementia and delirium, COPD, alf patient, change of behavior, is on ampicillin. She her antibiotics by now. Just Psychiatry treatment left. Bear Gordillo DO MTDD
--- NOTE | 2017-04-26 17:49 | CP.PCM.PN ---
Subjective - Date & Time of Evaluation Date of Evaluation: 04/26/17 Time of Evaluation: 11:55 - Subjective Subjective: Comfortable no fevers. Objective - Vital Signs/Intake and Output Vital Signs (last 24 hours): Temp Pulse Resp BP Pulse Ox 97.4 F L 83 20 155/53 H 97 04/26/17 07:30 04/26/17 07:30 04/26/17 07:30 04/26/17 07:30 04/26/17 07:30 - Medications Medications: Current Medications Ampicillin (Ampicillin) 500 mg PO QID [facility] PRN Reason: Protocol Stop: 04/27/17 22:01 Last Admin: 04/25/17 22:40 Dose: Not Given Aspirin (Aspirin) 325 mg PO DAILY [facility] Last Admin: 04/25/17 18:20 Dose: Not Given Docusate Sodium (Colace) 100 mg PO BID [facility] Last Admin: 04/25/17 18:21 Dose: Not Given Haloperidol Lactate (Haldol) 0.5 mg IM Q8H PRN; Protocol PRN Reason: agitation/aggression/psychosis Last Admin: 04/25/17 16:58 Dose: 0.5 mg Lisinopril (Zestril) 2.5 mg PO DAILY [facility] Last Admin: 04/25/17 18:21 Dose: Not Given Lorazepam (Ativan) 0.5 mg PO BID PRN; Protocol PRN Reason: Agitation Last Admin: 04/25/17 17:10 Dose: 0.5 mg Lorazepam (Ativan) 0.5 mg IM BID PRN; Protocol PRN Reason: Agitation Pantoprazole Sodium (Protonix Ec Tab) 40 mg PO DAILY [facility] Last Admin: 04/25/17 18:21 Dose: Not Given Quetiapine Fumarate (Seroquel) 25 mg PO AMHS [facility] PRN Reason: Protocol Last Admin: 04/25/17 23:06 Dose: Not Given - Labs Labs: 04/26/17 06:15 04/26/17 06:15 - Constitutional Appears: Chronically Ill - Head Exam Head Exam: NORMAL INSPECTION - Respiratory Exam Respiratory Exam: Decreased Breath Sounds - Cardiovascular Exam Cardiovascular Exam: +S1, +S2 - GI/Abdominal Exam GI & Abdominal Exam: Soft. absent: Tenderness Assessment and Plan - Assessment and Plan (Free Text) Plan: Assessment UTI with Enterococcus dementia COPD Plan Continue Ampicillin PO until 04/27/2017
[2017-04-27 06:55] LABS: MEAN CELL VOLUME 93.5 fl (80.0-105.0); MEAN CORPUSCULAR HEMOGLOBIN 29.8 pg (25.0-35.0); MEAN CORPUSCULAR HGB CONC 31.8 g/dl (31.0-37.0); MEAN PLATELET VOLUME 10.2 fl (7.0-11.0); RBC 3.36 10^6/uL (3.5-6.1); RED CELL DISTRIBUTION WIDTH 15.9 % (11.5-14.5)
[2017-04-27 07:17] LABS: ALBUMIN 3.1 g/dL (3.0-4.8); ALT/SGPT 20 U/L (7-56); AST/SGOT 28 U/L (14-36); BLOOD UREA NITROGEN 26 mg/dL (7-21); CALCIUM 9.2 mg/dL (8.4-10.5); GFR AFRICAN-AMERICAN > 60; GFR NON-AFRICAN AMERICAN 59
--- NOTE | 2017-04-27 08:41 | PN ---
DATE: 04/26/2017 She is being seen today for a followup consultation. PRESENTATION: Patient is an 86-year-old female seen at bedside. Patient was originally admitted to the hospital on 04/20/2017. She was sent from her correction for evaluation of aggressive behavior. A consult was ordered for Psychiatry for evaluation of altered mental status. When patient is seen today, she is sedated. She evidently had an episode of being aggressive and agitated, so she has been given Haldol 5 mg IM. She was not able to be aroused easily. She was quiet, breathing easily when seen, one-to-one in attendance. Patient was found on 04/19/2017 to have a urine culture with Enterococcus faecalis. She has been having aggressive behavior right uptil this point. Part of the problem appears to be that she is not consistently getting her medications as ordered. Patient is refusing them. As of today, she has not received any of her antibiotics. She did get the Haldol IM 0.5 mg at 10:24 this morning. Her lisinopril was not given. She did however receive some Ativan IM. However, her Seroquel was not given. According to nurse's notes, as of today, she was talking about killing people. She accused the staff of poisoning her. She was agitated and physically aggressive with her PCP. Talks nonstop to people that are not present, and makes no sense, she is completely disoriented. Current vital signs include temperature of 97.4, pulse rate of 83, blood pressure of 155/53, O2 saturation of 97%, and respiratory rate of 20. In review of the nurse's note and speaking with the nurses, she threatens and she is violent with them, she is difficult to deal with in terms of the fact that she is not reasonable, she is not cooperative and has not been taking her medications as ordered. Mental status exam was unable to be performed today due to patient's current condition. Information was gathered speaking with the nurses and the documentation that is available. DIAGNOSTIC IMPRESSION: Dementia, delirium secondary to urinary tract infection. PLAN: I am unable to assess fully whether patient is suicidal or homicidal, her actions do not indicate that she is; however, she is very disoriented and is unpredictable. The one-to-one is necessary for her. My concern is that patient does not have capacity to, and she has not been taking her medications as ordered. Therefore, her infection may not be clearing, and that may be worsening her confusion and dementia. I would suggest further assessment of the patient via an Infectious Disease consult to see if there is another way that the antibiotics can be given to her to help this patient clear. She cannot be cleared to go to the correction in her current state; she is combative and difficult. But again, unless the patient gets her medical to her and her situation clears, the delirium will continue at it's present level. Nursing staff does understand the importance of getting the medication into her, but are having great difficulties with this. This case has been discussed with Dr. Antoine. Thank you for the consult. Adry Mccullough APN Suzy Antoine MD.
--- NOTE | 2017-04-27 13:07 | PN ---
DATE: SUBJECTIVE: She slept all night. She is comfortable this morning. PHYSICAL EXAMINATION GENERAL: She is alert. VITAL SIGNS: She has 97.4 temperature, 83 pulse, 155/53 blood pressure, 20 respiratory rate, 97% O2 sat on room air. HEENT: Head is atraumatic, normocephalic. HEART: Regular rate. LUNGS: Clear to auscultation. ABDOMEN: Soft. EXTREMITIES: No edema. Told me she is a little bit paranoid. She is on ampicillin, aspirin, Ativan, Colace, Haldol, Protonix, Seroquel, and Zestril. I was told she did take her medication everyday. LABORATORY DATA: She has 7 white count, 10 hemoglobin, 31.4 hematocrit, 212,000 platelets. She has 143 sodium, potassium 3.9, BUN is 26, creatinine 0.9, GFR is greater than 60, sugar is 84, calcium is 9.2, total bilirubin is 0.2, AST is 28, ALT is 20, alkaline phosphatase is 84, total protein is 6.0. She has seen by Psychiatry, Infectious Disease. I am hoping that she continues to improve. We can get her off to one-to-one as per Psychiatry and then, get her back to the facility where she comes from. Infectious Disease on the case; to continue to ampicillin. with Enterococcus, dementia and COPD and we will get the word from Psychiatry discontinue the one-to-one. Bear Gordillo DO MTDD
[2017-04-27] MEDS: Pantoprazole 40 mg EC Tab PO SCH (14:08)
[2017-04-27 20:48] LABS: PH,URINE 6.5 (4.7-8.0); URINE BILIRUBIN NEGATIVE (NEGATIVE); URINE BLOOD TRACE-INTACT (NEGATIVE); URINE GLUCOSE (UA) NEGATIVE (NEGATIVE); URINE LEUKOCYTE ESTERASE SMALL Leu/uL (NEGATIVE); URINE NITRATE NEGATIVE (NEGATIVE); URINE PROTEIN NEGATIVE mg/dL (<30 mg/dL); URINE UROBILINOGEN 0.2 E.U./dL (<1 E.U./dL)
[2017-04-27 20:50] LABS: URINE APPEARANCE SL CLOUDY (CLEAR); URINE COLOR YELLOW (YELLOW)
[2017-04-27 20:56] LABS: URINE RBC 0 - 2 /hpf (0-2)
[2017-04-28 07:14] LABS: HEMOGLOBIN 11.2 g/dL (12.0-16.0); MEAN CELL VOLUME 92.9 fl (80.0-105.0); MEAN CORPUSCULAR HEMOGLOBIN 29.5 pg (25.0-35.0); MEAN CORPUSCULAR HGB CONC 31.7 g/dl (31.0-37.0); MEAN PLATELET VOLUME 10.4 fl (7.0-11.0); RBC 3.8 10^6/uL (3.5-6.1); RED CELL DISTRIBUTION WIDTH 15.6 % (11.5-14.5)
[2017-04-28 07:32] LABS: ALB/GLOB RATIO 1.1 (1.1-1.8); ALBUMIN 3.6 g/dL (3.0-4.8); ALT/SGPT 33 U/L (7-56); AST/SGOT 31 U/L (14-36); BLOOD UREA NITROGEN 24 mg/dL (7-21); CALCIUM 9.9 mg/dL (8.4-10.5); GFR AFRICAN-AMERICAN > 60; GFR NON-AFRICAN AMERICAN 59
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
[2017-04-28] MEDS: Pantoprazole 40 mg EC Tab PO SCH (10:15)
--- NOTE | 2017-04-28 12:32 | CP.PCM.PN ---
Subjective - Date & Time of Evaluation Date of Evaluation: 04/28/17 Time of Evaluation: 11:15 - Subjective Subjective: Patient walking around the hallways, not in distress, refusing PO antibiotics. No fevers. Objective - Vital Signs/Intake and Output Vital Signs (last 24 hours): Temp Pulse Resp BP Pulse Ox 98.8 F 52 L 18 115/55 L 99 04/28/17 07:30 04/28/17 07:30 04/28/17 07:30 04/28/17 07:30 04/28/17 07:30 Intake and Output: 04/28/17 04/28/17 06:59 18:59 Intake Total 120 Balance 120 - Medications Medications: Current Medications Aspirin (Aspirin) 325 mg PO DAILY [facility] Last Admin: 04/27/17 14:08 Dose: Not Given Docusate Sodium (Colace) 100 mg PO BID [facility] Last Admin: 04/27/17 14:08 Dose: Not Given Haloperidol Lactate (Haldol) 0.5 mg IM Q8H PRN; Protocol PRN Reason: agitation/aggression/psychosis Last Admin: 04/28/17 01:16 Dose: 0.5 mg Ampicillin 500 mg/ Sodium (Chloride) 100 mls @ 200 mls/hr IVPB Q6 [facility] Last Admin: 04/28/17 05:02 Dose: 200 mls/hr Lisinopril (Zestril) 2.5 mg PO DAILY [facility] Last Admin: 04/27/17 14:09 Dose: Not Given Lorazepam (Ativan) 0.5 mg PO BID PRN; Protocol PRN Reason: Agitation Last Admin: 04/25/17 17:10 Dose: 0.5 mg Lorazepam (Ativan) 0.5 mg IM BID PRN; Protocol PRN Reason: Agitation Last Admin: 04/26/17 18:03 Dose: 0.5 mg Pantoprazole Sodium (Protonix Ec Tab) 40 mg PO DAILY [facility] Last Admin: 04/27/17 14:08 Dose: Not Given Quetiapine Fumarate (Seroquel) 25 mg PO AMHS [facility] PRN Reason: Protocol Last Admin: 04/27/17 21:50 Dose: 25 mg - Labs Labs: 04/28/17 06:20 04/28/17 06:20 - Constitutional Appears: Non-toxic, Chronically Ill - Head Exam Head Exam: NORMAL INSPECTION - ENT Exam ENT Exam: Mucous Membranes Moist - Neck Exam Neck Exam: absent: Meningismus - Respiratory Exam Respiratory Exam: Decreased Breath Sounds - Cardiovascular Exam Cardiovascular Exam: +S1, +S2 - GI/Abdominal Exam GI & Abdominal Exam: Soft. absent: Tenderness Assessment and Plan - Assessment and Plan (Free Text) Plan: Assessment UTI with Enterococcus dementia COPD Plan Continue Ampicillin now switched to IV since she is refusing PO - will need 5-7 days of therapy (day 1 today)
--- NOTE | 2017-04-28 15:44 | PN ---
DATE: SUBJECTIVE: She is having problem. She is not always taking the medications. She is on IV antibiotics right now. They cleared her up ready to take medication, be discharged, be able to get one-to-one, which she is on. She is on ampicillin IV, aspirin, Ativan, Colace, Haldol, Protonix, Seroquel, and Zestril. PHYSICAL EXAMINATION: VITAL SIGNS: 98.8 temperature, 62 pulse, 150/55 blood pressure, 18 respiratory rate, 99% O2 sat on room air. HEENT: Head is atraumatic, normocephalic. She is alert. Not liking anything that is being done to her. HEART: Regular rate. LUNGS: Clear to auscultation. ABDOMEN: Soft. EXTREMITIES: No edema. She does walk around. She eats what she wants. LABORATORY DATA: She has a 10 white count, 11.2 hemoglobin, 35.3 hematocrit, 238 platelets. 143 sodium, potassium is 4, BUN 24, creatinine 0.9, GFR is greater than 60, sugar is 96, calcium is 9.9. Total bili is 0.3, AST is 31, ALT is 33, alkaline phosphatase 138, total protein 6.9. PLAN: Continue with IV antibiotics. She has to get the medication, so she could be cleared medically so that she will clear up and be off to one-to-one neurologically and psychologically. Continue with aggressive treatment and care as per Infectious Disease and Psychiatry. We will check her labs tomorrow. Encourage her to eat and take the medications. She has delirium, dementia, change of mentation, UTI and COPD. Bear Gordillo DO [facility]
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
[2017-04-29 06:55] LABS: HEMOGLOBIN 10.1 g/dL (12.0-16.0); MEAN CELL VOLUME 93.8 fl (80.0-105.0); MEAN CORPUSCULAR HEMOGLOBIN 29.8 pg (25.0-35.0); MEAN CORPUSCULAR HGB CONC 31.8 g/dl (31.0-37.0); MEAN PLATELET VOLUME 10.4 fl (7.0-11.0); RBC 3.39 10^6/uL (3.5-6.1); RED CELL DISTRIBUTION WIDTH 15.8 % (11.5-14.5); WHITE BLOOD COUNT 7.2 10^3/ul (4.5-11.0)
[2017-04-29 07:09] LABS: ALBUMIN 3.1 g/dL (3.0-4.8); ALT/SGPT 34 U/L (7-56); AST/SGOT 31 U/L (14-36); BLOOD UREA NITROGEN 25 mg/dL (7-21); CALCIUM 9.5 mg/dL (8.4-10.5); GFR AFRICAN-AMERICAN > 60; GFR NON-AFRICAN AMERICAN 59
[2017-04-29] MEDS: Pantoprazole 40 mg EC Tab PO SCH (11:15)
--- NOTE | 2017-04-29 14:03 | CP.PCM.PN ---
Subjective - Date & Time of Evaluation Date of Evaluation: 04/29/17 Time of Evaluation: 10:45 - Subjective Subjective: No fevers, not in distress. Objective - Vital Signs/Intake and Output Vital Signs (last 24 hours): Temp Pulse Resp BP Pulse Ox 97.9 F 79 20 124/48 L 98 04/29/17 07:30 04/29/17 07:30 04/29/17 07:30 04/29/17 07:30 04/29/17 07:30 - Medications Medications: Current Medications Aspirin (Aspirin) 325 mg PO DAILY [facility] Last Admin: 04/28/17 10:15 Dose: 325 mg Docusate Sodium (Colace) 100 mg PO BID [facility] Last Admin: 04/28/17 17:30 Dose: Not Given Haloperidol Lactate (Haldol) 0.5 mg IM Q8H PRN; Protocol PRN Reason: agitation/aggression/psychosis Last Admin: 04/28/17 13:53 Dose: 0.5 mg Ampicillin 500 mg/ Sodium (Chloride) 100 mls @ 200 mls/hr IVPB Q6 [facility] Last Admin: 04/29/17 05:01 Dose: 200 mls/hr Lisinopril (Zestril) 2.5 mg PO DAILY [facility] Last Admin: 04/28/17 10:15 Dose: 2.5 mg Lorazepam (Ativan) 0.5 mg PO BID PRN; Protocol PRN Reason: Agitation Last Admin: 04/25/17 17:10 Dose: 0.5 mg Lorazepam (Ativan) 0.5 mg IM BID PRN; Protocol PRN Reason: Agitation Last Admin: 04/28/17 13:54 Dose: 0.5 mg Pantoprazole Sodium (Protonix Ec Tab) 40 mg PO DAILY [facility] Last Admin: 04/28/17 10:15 Dose: 40 mg Quetiapine Fumarate (Seroquel) 25 mg PO AMHS [facility] PRN Reason: Protocol Last Admin: 04/28/17 21:09 Dose: 25 mg - Labs Labs: 04/29/17 06:20 04/29/17 06:20 - Constitutional Appears: Chronically Ill - Head Exam Head Exam: NORMAL INSPECTION - Respiratory Exam Respiratory Exam: Decreased Breath Sounds - Cardiovascular Exam Cardiovascular Exam: +S1, +S2 - GI/Abdominal Exam GI & Abdominal Exam: Soft. absent: Tenderness Assessment and Plan - Assessment and Plan (Free Text) Plan: Assessment UTI with Enterococcus dementia COPD Plan Continue Ampicillin now switched to IV since she is refusing PO - will need 5-7 days of therapy (day 2 today)
--- NOTE | 2017-04-29 14:17 | PN ---
DATE: SUBJECTIVE: I saw her this morning in her room. She slept all night, the one-to-one person said. She is She tells me she is hungry, which is great. PHYSICAL EXAMINATION: VITAL SIGNS: She has a 97.9 temperature, 79 pulse, 124/48 blood pressure, 20 respiratory rate, 98% O2 sat on room air. HEENT: Head is atraumatic, normocephalic. HEART: Regular rate. LUNGS: Decreased breath sounds, but clear. ABDOMEN: Soft. EXTREMITIES: No edema. CURRENT MEDICATIONS: She is currently on ampicillin IV, aspirin, Ativan, Colace, Haldol, Protonix, Seroquel, Zestril. LABORATORY DATA: She has a 7.2 white count, 10.1 hemoglobin, 31.8 hematocrit, with 260 platelets. Sodium 143, potassium 4.3. BUN 25, creatinine 0.9. GFR is 69. Sugar is 91. Calcium is 9.5. Total bili is 0.3, AST is 31, ALT is 34, alk phos 77, total protein is 6.1. ASSESSMENT AND PLAN: On reviewing the notes, Psychiatry had signed off yesterday, but I called up Psychiatry, they still want her on one-to-one right now. She is still on the IV antibiotics. When I get the okay from Psychiatry, I could discontinue the one-to-one. I will get her back to her subacute rehab. Waiting for a decision, otherwise, we will continue with ampicillin IV. I do think she is getting a bit better. I want to check her labs tomorrow. Continue with treatment and care as per Psychiatry. Bear Gordillo DO [facility]
[2017-04-30 06:50] LABS: HEMOGLOBIN 10.6 g/dL (12.0-16.0); MEAN CELL VOLUME 93.3 fl (80.0-105.0); MEAN CORPUSCULAR HEMOGLOBIN 29.5 pg (25.0-35.0); MEAN CORPUSCULAR HGB CONC 31.6 g/dl (31.0-37.0); MEAN PLATELET VOLUME 10.4 fl (7.0-11.0); RBC 3.59 10^6/uL (3.5-6.1); RED CELL DISTRIBUTION WIDTH 15.4 % (11.5-14.5); WHITE BLOOD COUNT 6.7 10^3/ul (4.5-11.0)
[2017-04-30 07:08] LABS: BLOOD UREA NITROGEN 22 mg/dL (7-21)
[2017-04-30 07:09] LABS: ALBUMIN 3.2 g/dL (3.0-4.8); ALT/SGPT 28 U/L (7-56); AST/SGOT 30 U/L (14-36); CALCIUM 9.3 mg/dL (8.4-10.5); GFR AFRICAN-AMERICAN > 60; GFR NON-AFRICAN AMERICAN > 60
[2017-04-30] MEDS: Pantoprazole 40 mg EC Tab PO SCH (09:36)
[2017-05-01 07:08] LABS: HEMOGLOBIN 10.5 g/dL (12.0-16.0); MEAN CELL VOLUME 92.4 fl (80.0-105.0); MEAN CORPUSCULAR HEMOGLOBIN 29.4 pg (25.0-35.0); MEAN CORPUSCULAR HGB CONC 31.8 g/dl (31.0-37.0); MEAN PLATELET VOLUME 10.4 fl (7.0-11.0); RBC 3.57 10^6/uL (3.5-6.1); RED CELL DISTRIBUTION WIDTH 15.1 % (11.5-14.5); WHITE BLOOD COUNT 8.4 10^3/ul (4.5-11.0)
[2017-05-01 07:32] LABS: ALBUMIN 3.4 g/dL (3.0-4.8); ALT/SGPT 35 U/L (7-56); AST/SGOT 29 U/L (14-36); BLOOD UREA NITROGEN 15 mg/dL (7-21); CALCIUM 9.6 mg/dL (8.4-10.5); GFR AFRICAN-AMERICAN > 60; GFR NON-AFRICAN AMERICAN > 60
[2017-05-01] MEDS: Pantoprazole 40 mg EC Tab PO SCH (09:44)
--- NOTE | 2017-05-01 12:44 | PN ---
DATE: SUBJECTIVE: I saw Emily resting comfortably in bed. She is with a one-to-one still. The one-to-one said they walked very well. She is alert. She tells me she is hungry, definitely more talkative and appropriate. She is being seen by Neurology, Infectious Disease, Pulmonology, Psychiatry. When Psychiatry tells me, I drop the one-to-one, will get her back to her residence. She is on ampicillin IV, aspirin, Ativan, Colace, Haldol, Protonix, Seroquel, and Zestril. OBJECTIVE: VITAL SIGNS: She has a 97.7 temperature, 91 pulse, 161/85 blood pressure, 18 respiratory rate, 98% O2 sat on room air. HEENT: Head is atraumatic, normocephalic. Throat is moist. NECK: Supple. HEART: Regular rate. LUNGS: Decreased breath sounds, but clear to auscultation. ABDOMEN: Soft. EXTREMITIES: No edema. She is quite comfortable today, talking more. Probably, she has delirium and dementia, change in mental status, UTI, and COPD. Continue with the IV antibiotics. When I get the okay from Psychiatry, I will discontinue the one-to-one and get her back to her living place. We will check her labs tomorrow. Encourage out of bed to chair. Encourage diet. Continue IV antibiotics and aggressive treatment. Bear Gordillo DO
--- NOTE | 2017-05-01 13:35 | CP.PCM.PN ---
Subjective - Date & Time of Evaluation Date of Evaluation: 04/30/17 Time of Evaluation: 12:35 - Subjective Subjective: No fevers, not in distress. Objective - Vital Signs/Intake and Output Vital Signs (last 24 hours): Temp Pulse Resp BP Pulse Ox 98 F 69 18 154/66 H 97 04/30/17 07:00 04/30/17 07:00 04/30/17 07:00 04/30/17 09:36 04/30/17 07:00 - Medications Medications: Current Medications Aspirin (Aspirin) 325 mg PO DAILY [facility] Last Admin: 04/30/17 09:35 Dose: 325 mg Docusate Sodium (Colace) 100 mg PO BID [facility] Last Admin: 04/30/17 09:36 Dose: Not Given Haloperidol Lactate (Haldol) 0.5 mg IM Q8H PRN; Protocol PRN Reason: agitation/aggression/psychosis Last Admin: 04/28/17 13:53 Dose: 0.5 mg Ampicillin 500 mg/ Sodium (Chloride) 100 mls @ 200 mls/hr IVPB Q6 [facility] Last Admin: 04/30/17 06:31 Dose: 200 mls/hr Lisinopril (Zestril) 2.5 mg PO DAILY [facility] Last Admin: 04/30/17 09:36 Dose: 2.5 mg Lorazepam (Ativan) 0.5 mg PO BID PRN; Protocol PRN Reason: Agitation Last Admin: 04/30/17 09:36 Dose: 0.5 mg Lorazepam (Ativan) 0.5 mg IM BID PRN; Protocol PRN Reason: Agitation Last Admin: 04/28/17 13:54 Dose: 0.5 mg Pantoprazole Sodium (Protonix Ec Tab) 40 mg PO DAILY [facility] Last Admin: 04/30/17 09:36 Dose: 40 mg Quetiapine Fumarate (Seroquel) 25 mg PO AMHS [facility] PRN Reason: Protocol Last Admin: 04/30/17 09:35 Dose: 25 mg - Labs Labs: 04/30/17 06:00 04/30/17 06:00 - Constitutional Appears: Chronically Ill - Head Exam Head Exam: NORMAL INSPECTION - ENT Exam ENT Exam: Mucous Membranes Moist - Neck Exam Neck Exam: absent: Meningismus - Respiratory Exam Respiratory Exam: Decreased Breath Sounds - Cardiovascular Exam Cardiovascular Exam: +S1, +S2 - GI/Abdominal Exam GI & Abdominal Exam: Soft. absent: Tenderness Assessment and Plan - Assessment and Plan (Free Text) Plan: Assessment UTI with Enterococcus dementia COPD Plan Continue Ampicillin now switched to IV since she is refusing PO - will need 5-7 days of therapy (day 4 today)
[2017-05-02 06:50] LABS: HEMOGLOBIN 10.3 g/dL (12.0-16.0); MEAN CELL VOLUME 93.7 fl (80.0-105.0); MEAN CORPUSCULAR HEMOGLOBIN 29.5 pg (25.0-35.0); MEAN CORPUSCULAR HGB CONC 31.5 g/dl (31.0-37.0); MEAN PLATELET VOLUME 9.9 fl (7.0-11.0); RBC 3.49 10^6/uL (3.5-6.1); RED CELL DISTRIBUTION WIDTH 15.3 % (11.5-14.5); WHITE BLOOD COUNT 7.6 10^3/ul (4.5-11.0)
[2017-05-02 07:27] LABS: ALBUMIN 3.2 g/dL (3.0-4.8); ALT/SGPT 26 U/L (7-56); AST/SGOT 27 U/L (14-36); BLOOD UREA NITROGEN 14 mg/dL (7-21); CALCIUM 9.8 mg/dL (8.4-10.5); GFR AFRICAN-AMERICAN > 60; GFR NON-AFRICAN AMERICAN 59
--- NOTE | 2017-05-02 09:55 | PN ---
DATE: 04/30/2017 SUBJECTIVE: I saw Emily resting comfortably in bed. I am trying to convincing her to eat her lunch. MEDICATIONS: She is on IV ampicillin, aspirin, Ativan, Colace, Haldol, Protonix, Seroquel, Zestril, . PHYSICAL EXAMINATION VITAL SIGNS: Temperature 98 , 69 pulse, 135/50 blood pressure, 18 respiratory rate, 97% O2 sat on room air. HEENT: Head is atraumatic, normocephalic. Throat is moist. NECK: Supple. HEART: Regular rate. LUNGS: Clear to auscultation. ABDOMEN: Soft. EXTREMITIES: No edema. She is about 80 pounds LABORATORY DATA: She has a 6.7 white count, 10.6 hemoglobin, 33.5 hematocrit with 222 platelets. Sodium 141, potassium 3.8, BUN is 22, creatinine is 0.8, GFR is greater than 60, sugar is 84, calcium is 9.3, total bilirubin is 0.4, AST is 30, ALT is 20, alkaline phosphatase is 100, total protein is 6.3. ASSESSMENT AND PLAN: I definitely think she is improving. She is being seen by Infectious Disease, Psychiatry. I am waiting for her to be okay when Psychiatry says back to our facility. She has urinary tract infection, dementia, chronic obstructive pulmonary disease. We will continue aggressive treatment and care. Check her labs tomorrow. Bear Gordillo DO MTDD
--- NOTE | 2017-05-02 11:24 | PN ---
DATE: SUBJECTIVE: I saw her resting comfortably in bed. She slept well. She is hungry this morning. She is currently on ampicillin IV, aspirin, Ativan, Colace, Haldol, Protonix, Seroquel, and Zestril. She has a one-to-one on. I said she was up some of the night, but she slept fairly well, calm. She is walking okay. PHYSICAL EXAMINATION VITAL SIGNS: She has 98.2 temperature, 87 pulse, blood pressure, 22 respiratory rate, and 90% O2 saturation on room air. HEENT: Head: Atraumatic, normocephalic. HEART: Regular rate. LUNGS: Clear to auscultation. ABDOMEN: Soft. EXTREMITIES: No edema. LABORATORY DATA: She has a 7.6 white count, 10.3 hemoglobin, and 32.7 hematocrit with 218 platelets. Sodium 146, potassium 4.4, BUN is 40, creatinine 0.9, GFR is 69, sugar is 88, and calcium 9.8. Total bilirubin is 0.3, AST is 27, ALT is 26, alkaline phosphatase 95, and total protein is 6.3. When I get the okay from the psychiatrist, then I could discontinue her one-to-one. I will get her back to her residence . I am hoping it soon. I think she is improving. She has DTR with Enterococcus, dementia, COPD. Hoping that Psychiatry will stop the one-to-one, I will get her a discharge plan. Bear Gordillo DO MTDLilly
--- NOTE | 2017-05-02 11:49 | PN ---
DATE: SUBJECTIVE: The patient is 86-year-old with a reported history of dementia, multiple medical issues. Initially, the patient sent in from the care home for evaluation of aggressive behavior. The patient was found to have urinary tract infection, most likely had delirium on dementia; at present moment, the patient was on the fifth floor. Psychiatric team signed off from this case. Dr. Gordillo requested to follow up this patient. The patient was seen and examined today at the morning time. Discussed with the nursing staff. As per nursing staff, the patient is sporadically taking her medications. This patient has been paranoid about the medication given to her. There is some improvement with the presentation. The patient is calmer, but she has periods of like trying to kick, also wandering behavior. The patient was seen and examined today. The patient presented to be sleepy, easily arousable. The patient does not make much sense, has some mood swings. The patient reported that she feels hungry and falls back asleep . This continuity writer attempted to awake the patient up. The patient said, "get out of here" and went back to sleep. There is no family involved into the patient care. Rehabilitation Therapist was advised to contact family and ask if anybody could make decision for the patient because the patient deemed to be in demented stage, cannot make rational decision for herself. At the same time, the patient lacks capacity to refuse the medication because the patient does not have any basic understanding of medical diagnosis and prognosis. The patient was not able to process information about risks, benefits and alternatives of the medications and the patient is paranoid. PHYSICAL EXAMINATION VITAL SIGNS: Reviewed. Temperature 98.2, pulse is 87, blood pressure 154/57, respirations 22, oxygen saturation is 98. MEDICATIONS: Reviewed. Ampicillin IV; aspirin, the patient did not take; Colace, the patient did not take; Haldol IM was given to the patient on 04/30/2017; lisinopril, the patient did not take; Ativan 0.5 mg twice a day for agitation, most recently, the patient got this dose of medication on 04/30/2017; Ativan 0.5 mg IM b.i.d. p.r.n., most recent was 04/28/2017; Protonix and Seroquel 25 mg twice a day, which the patient refused. DATA: Labs reviewed, most recent was from the ; hemoglobin and hematocrit of 10.3 and 32.7. Chemistry reviewed, seems to be within normal limits. Urinalysis showed leukocyte esterase small and trace blood on 04/27/2017. Toxicology is negative for any substances. Urinalysis showed Enterococcal faecalis. Infectious Disease note reviewed. Continue ampicillin and right now, the patient is on IV because the patient was refusing p.o. Altogether, the patient needs 5 to 7 days of therapy, today is day 4. Discussed with the nursing staff. Yesterday, the patient was agitated and had wandering behavior, but not today. MENTAL STATUS EXAM: The patient was deeply sleeping, but easily arousable, opening her eyes. Speech is incoherent. Mood, I want you to get out of here. Affect is constricted. Mood congruent. As per staff, the patient is acting bizarre and paranoid, refusing medication. The patient was not able to comprehend question about suicidality and homicidality. Insight and judgment seems to be impaired due to dementia and delirium and judgment is poor. Impulses are not predictable. IMPRESSION: Delirium on dementia, multiple medical issues. Please see medical team notes for more detailed information. PLAN: This continuity writer will discontinue Seroquel; started Risperdal liquid form 0.5 mg three times a day; Depakote Sprinkles 125 mg twice a day. The patient has Ativan p.r.n. medication. Continue current management. This continuity writer will try to discontinue one to one, the patient is next to the nursing station. The patient is on antibiotics, today is day #4 of ampicillin for urinary tract infection. Rehabilitation Therapist involved. This continuity writer asked to call to the care home and figure out if the patient has power of associate attorney or a legal guardian. Meanwhile, continue current management. Continue current medication. We will follow up with this patient tomorrow. Hopefully, the patient will be doing better and will be able to go back to the care home. Thank you very much for letting us participate in care of your patient Suzy Antoine MD [facility] # [id number]
--- NOTE | 2017-05-02 12:36 | CP.PCM.PN ---
Subjective - Date & Time of Evaluation Date of Evaluation: 05/02/17 Time of Evaluation: 10:50 - Subjective Subjective: Comfortable, afebrile. Objective - Vital Signs/Intake and Output Vital Signs (last 24 hours): Temp Pulse Resp BP Pulse Ox 98.2 F 87 22 154/57 H 98 05/01/17 16:00 05/01/17 16:00 05/01/17 16:00 05/01/17 16:00 05/01/17 16:00 Intake and Output: 05/02/17 05/02/17 06:59 18:59 Intake Total 540 Balance 540 - Medications Medications: Current Medications Aspirin (Aspirin) 325 mg PO DAILY [facility] Last Admin: 05/01/17 09:44 Dose: Not Given Divalproex Sodium (Depakote Sprinkles) 125 mg PO BID [facility] PRN Reason: Protocol Docusate Sodium (Colace) 100 mg PO BID [facility] Last Admin: 05/01/17 17:27 Dose: Not Given Haloperidol Lactate (Haldol) 0.5 mg IM Q8H PRN; Protocol PRN Reason: agitation/aggression/psychosis Last Admin: 04/30/17 12:17 Dose: 0.5 mg Ampicillin 500 mg/ Sodium (Chloride) 100 mls @ 200 mls/hr IVPB Q6 [facility] Last Admin: 05/02/17 05:18 Dose: 200 mls/hr Lisinopril (Zestril) 2.5 mg PO DAILY [facility] Last Admin: 05/01/17 09:44 Dose: Not Given Lorazepam (Ativan) 0.5 mg PO BID PRN; Protocol PRN Reason: Agitation Last Admin: 04/30/17 09:36 Dose: 0.5 mg Lorazepam (Ativan) 0.5 mg IM BID PRN; Protocol PRN Reason: Agitation Last Admin: 04/28/17 13:54 Dose: 0.5 mg Pantoprazole Sodium (Protonix Ec Tab) 40 mg PO DAILY [facility] Last Admin: 05/01/17 09:44 Dose: Not Given Risperidone (Risperdal Oral Soln) 0.5 mg PO AMHS [facility] PRN Reason: Protocol Risperidone (Risperdal Oral Soln) 1 mg PO 1600 [facility]OHNY PRN Reason: Protocol - Labs Labs: 05/02/17 06:20 05/02/17 06:20 - Constitutional Appears: Chronically Ill - Head Exam Head Exam: NORMAL INSPECTION - ENT Exam ENT Exam: Mucous Membranes Moist - Neck Exam Neck Exam: absent: Meningismus - Respiratory Exam Respiratory Exam: Decreased Breath Sounds - Cardiovascular Exam Cardiovascular Exam: +S1, +S2 - GI/Abdominal Exam GI & Abdominal Exam: Soft. absent: Tenderness Assessment and Plan - Assessment and Plan (Free Text) Plan: Assessment UTI with Enterococcus dementia COPD Plan Continue Ampicillin now switched to IV since she is refusing PO - will need 5-7 days of therapy (day 5 today)
[2017-05-02] MEDS: Divalproex 125 mg EC Sprinkle Cap PO SCH ×2 (13:24→17:03)
[2017-05-02] MEDS: Pantoprazole 40 mg EC Tab PO SCH (13:24)
[2017-05-03 06:50] LABS: HEMOGLOBIN 10.5 g/dL (12.0-16.0); MEAN CELL VOLUME 92.8 fl (80.0-105.0); MEAN CORPUSCULAR HEMOGLOBIN 29.2 pg (25.0-35.0); MEAN CORPUSCULAR HGB CONC 31.5 g/dl (31.0-37.0); MEAN PLATELET VOLUME 10.2 fl (7.0-11.0); RBC 3.59 10^6/uL (3.5-6.1); WHITE BLOOD COUNT 7.5 10^3/ul (4.5-11.0)
[2017-05-03 07:48] LABS: ALBUMIN 3.2 g/dL (3.0-4.8); ALT/SGPT 31 U/L (7-56); AST/SGOT 24 U/L (14-36); BLOOD UREA NITROGEN 22 mg/dL (7-21); GFR AFRICAN-AMERICAN > 60; GFR NON-AFRICAN AMERICAN 59
[2017-05-03] MEDS: Divalproex 125 mg EC Sprinkle Cap PO SCH ×2 (09:20→17:47)
[2017-05-03] MEDS: Pantoprazole 40 mg EC Tab PO SCH (09:25)
--- NOTE | 2017-05-03 12:44 | CP.PCM.PN ---
Subjective - Date & Time of Evaluation Date of Evaluation: 05/03/17 Time of Evaluation: 11:00 - Subjective Subjective: Walking around the hallway, not in distress, afebrile. Objective - Vital Signs/Intake and Output Vital Signs (last 24 hours): Temp Pulse Resp BP Pulse Ox 97.5 F L 96 H 18 146/50 L 95 05/02/17 16:00 05/02/17 16:00 05/02/17 16:00 05/02/17 16:00 05/02/17 16:00 - Medications Medications: Current Medications Aspirin (Aspirin) 325 mg PO DAILY [facility] Last Admin: 05/02/17 13:23 Dose: Not Given Divalproex Sodium (Depakote Sprinkles) 125 mg PO BID [facility] PRN Reason: Protocol Last Admin: 05/02/17 17:03 Dose: Not Given Docusate Sodium (Colace) 100 mg PO BID [facility] Last Admin: 05/02/17 17:03 Dose: Not Given Haloperidol Lactate (Haldol) 0.5 mg IM Q8H PRN; Protocol PRN Reason: agitation/aggression/psychosis Last Admin: 04/30/17 12:17 Dose: 0.5 mg Ampicillin 500 mg/ Sodium (Chloride) 100 mls @ 200 mls/hr IVPB Q6 [facility] Last Admin: 05/03/17 05:17 Dose: 200 mls/hr Lisinopril (Zestril) 2.5 mg PO DAILY [facility] Last Admin: 05/02/17 13:25 Dose: Not Given Lorazepam (Ativan) 0.5 mg PO BID PRN; Protocol PRN Reason: Agitation Last Admin: 04/30/17 09:36 Dose: 0.5 mg Lorazepam (Ativan) 0.5 mg IM BID PRN; Protocol PRN Reason: Agitation Last Admin: 04/28/17 13:54 Dose: 0.5 mg Pantoprazole Sodium (Protonix Ec Tab) 40 mg PO DAILY [facility] Last Admin: 05/02/17 13:24 Dose: Not Given Risperidone (Risperdal Oral Soln) 0.5 mg PO AMHS [facility] PRN Reason: Protocol Last Admin: 05/02/17 21:45 Dose: 0.5 mg Risperidone (Risperdal Oral Soln) 1 mg PO 1600 [facility] PRN Reason: Protocol Last Admin: 05/02/17 17:02 Dose: 1 mg - Labs Labs: 05/03/17 06:20 05/03/17 06:20 - Constitutional Appears: Chronically Ill - Head Exam Head Exam: NORMAL INSPECTION - ENT Exam ENT Exam: Mucous Membranes Moist - Neck Exam Neck Exam: absent: Meningismus - Respiratory Exam Respiratory Exam: Decreased Breath Sounds - Cardiovascular Exam Cardiovascular Exam: +S1, +S2 - GI/Abdominal Exam GI & Abdominal Exam: Soft. absent: Tenderness Assessment and Plan - Assessment and Plan (Free Text) Plan: Assessment UTI with Enterococcus dementia COPD Plan Continue Ampicillin now switched to IV since she is refusing PO - will need 5-7 days of therapy (day 6 today)
--- NOTE | 2017-05-03 14:01 | PN ---
DATE: SUBJECTIVE: I was told by nursing that there is a medication change and then she went very much off mentally. She is on ampicillin IV, aspirin, Ativan, Colace, Depakote, Haldol, Protonix, Risperdal and Zestril. She presently comfortably resting in bed. She got up to go into the bathroom. She walks okay. PHYSICAL EXAMINATION: VITAL SIGNS: She has a 97.5 temp, 96 pulse, 146/50 blood pressure, 18 respiratory rate, 95% O2 sat on room air. HEENT: Head is atraumatic, normocephalic. She is alert. She is looking for Ravin, her brother. HEART: Regular rate. LUNGS: Decreased breath sounds, but clear. ABDOMEN: Soft. EXTREMITIES: No edema. LABORATORY DATA: She has a 7.5 white count, 10.5 hemoglobin, 33.3 hematocrit with 233 platelets. 141 sodium, potassium 3.8, BUN is 22, creatinine 0.9, GFR is 59, sugar is 92, calcium is 9, total bili is 0.3, AST is 24, ALT is 31, alk phos 97, total protein 6.3. ASSESSMENT AND PLAN: We will continue with aggressive treatment and care. She is being seen by Psychiatry, Infectious Disease. I changed her Seroquel to Risperdal and she went off a little bit mentally. Hopefully, she will improve. She has dementia, delirium on dementia, chronic obstructive pulmonary disease, urinary tract infection. As per Psychiatry, when I could discontinue the one-to-one, I will work on getting her one-to-one. Bear Gordillo DO MTDLilly
--- NOTE | 2017-05-03 14:39 | PN ---
DATE: SUBJECTIVE: Patient was followed up today. Patient presented to be alert, somewhat better to compare with the previous few days. Patient was less paranoid. Patient was able to hold conversation; at the same time, patient appears to be confused. She states that she remembers this feature writer from being together in the boat. Clarification, this feature writer has never been in the boat with the patient. Patient asked about her IV line. This feature writer educated patient about antibiotics and IV hydration, then the patient shook her hand. Later on, the patient was observed, working with one to one peacefully on the hallway. This feature writer had phone conversation with Dr. Gordillo. I think this patient was doing better on Risperdal liquid form, we will continue that and also, patient is getting IV antibiotics, probably continuation of antibiotics . Risperdal is giving patient relief of her symptoms of delirium. VITAL SIGNS: This feature writer reviewed vital signs. Temperature 97.5, pulse is 96, blood pressure is 146/50, respirations 18, and oxygen saturation is 95%. MEDICATIONS: Reviewed. Ampicillin. Aspirin, patient refused. Depakote, patient refused. Colace, patient refused. Haldol 0.5 mg IM q. 8 hours, last dose was on . Lisinopril, patient refused. Ativan 0.5 mg IM twice a day p.r.n., the most recent was on . LABORATORY DATA: Reviewed. Most recent was from today. Hemoglobin and hematocrit 10.5 and 33.3. Chemistry reviewed. Urinalysis, no new readings. Toxicology negative. MENTAL STATUS EXAM: As this feature writer described above, the patient appears to be alert, presently confused. Fair eye contact. Speech at times incoherent. Patient also hard of hearing. Mood described as alright. Affect was reactive. Mood congruent. Thought process is disorganized and patient confabulates. Thought content one to one. Patient was seeing her brother recently, but there is no brother. Has visual hallucination. Patient is less guarded, less paranoid. Insight and judgement seems to be impaired due to dementia and delirium. Impulses are better controlled. ASSESSMENT: Delirium on dementia. Patient has multiple medical issues and urinary tract infection, for what she is taking antibiotics. Delirium seems to be clearing up slowly. PLAN: Continue current management. Continue current medications, one to one is active. Risperdal will be continued. Depakote will be continued. We will follow up and advise accordingly. Thank you very much for letting us participate in care of your patient. Discussed with primary care physician, Dr. Gordillo. Suzy Antoine MD
[2017-05-03 16:54] VITALS: BP 125/51; PULSE 94; RESP 16; TEMP 97.8; O2SAT 99
[2017-05-04 07:06] LABS: HEMOGLOBIN 10.1 g/dL (12.0-16.0); MEAN CELL VOLUME 93.2 fl (80.0-105.0); MEAN CORPUSCULAR HEMOGLOBIN 29.8 pg (25.0-35.0); MEAN PLATELET VOLUME 10.3 fl (7.0-11.0); RBC 3.39 10^6/uL (3.5-6.1); RED CELL DISTRIBUTION WIDTH 15.3 % (11.5-14.5); WHITE BLOOD COUNT 8.2 10^3/ul (4.5-11.0)
[2017-05-04 07:18] LABS: ALBUMIN 3.1 g/dL (3.0-4.8); ALT/SGPT 27 U/L (7-56); AST/SGOT 24 U/L (14-36); BLOOD UREA NITROGEN 23 mg/dL (7-21); CALCIUM 9.5 mg/dL (8.4-10.5); GFR AFRICAN-AMERICAN > 60; GFR NON-AFRICAN AMERICAN > 60
[2017-05-04] MEDS: Divalproex 125 mg EC Sprinkle Cap PO SCH (10:44)
[2017-05-04] MEDS: Pantoprazole 40 mg EC Tab PO SCH (10:44)
--- NOTE | 2017-05-05 04:47 | DS ---
I saw Emily, resting comfortably in bed. She has been off the one-to-one all night. She is doing well. I believe I marked the ampicillin can be stopped. Should be on aspirin, Ativan, Colace, Depakote, Haldol, Protonix, Risperdal, and Zestril back at the facility. PHYSICAL EXAMINATION: VITAL SIGNS: She has a 97.8 temperature, 94 pulse, 125/51 blood pressure, 16 respiratory rate, 99% O2 sat on room air. GENERAL: She is comfortable in bed. HEENT: Head is atraumatic, normocephalic. HEART: Regular rate. LUNGS: Clear to auscultation. ABDOMEN: Soft. EXTREMITIES: No edema. She is walking well. LABORATORY DATA: She has 141 sodium, potassium 3.9, BUN 23, creatinine 0.8, GFR greater than 60, sugar is 91, calcium 9.5, total bilirubin 0.2. AST is 24, ALT is 27, alkaline phosphatase 91, total protein 6.2. White count is 8.2, hemoglobin 10.1, hematocrit 31.6, platelets of 229. ASSESSMENT AND PLAN: This is the best I have seen her, and I put a discharge to send her back to her facility. Bear Gordillo DO
== END 2017-05-04 11:18 | DRG 690 ==
LOC: ED 18:56 → ERH 04-20 01:37 → OBSVTOIN 04-20 08:57 → ERH 04-20 18:39 → 5RNO 04-20 20:09
PROVIDERS: ADMIT Family Medicine; ATTEND Family Medicine
DX: N39.0 Urinary tract infection, site not specified (principal); B95.2 Enterococcus as the cause of diseases classified elsewhere; G30.9 Alzheimer's disease, unspecified; F02.81 Dementia in other diseases classified elsewhere, unspecified severity, with behavioral disturbance; F05 Delirium due to known physiological condition; I42.9 Cardiomyopathy, unspecified; I50.9 Heart failure, unspecified; I11.0 Hypertensive heart disease with heart failure; R56.9 Unspecified convulsions; J44.9 Chronic obstructive pulmonary disease, unspecified; K21.9 Gastro-esophageal reflux disease without esophagitis; R41.841 Cognitive communication deficit; E86.0 Dehydration; I25.10 Atherosclerotic heart disease of native coronary artery without angina pectoris; I34.0 Nonrheumatic mitral (valve) insufficiency; Z91.14 Patient's other noncompliance with medication regimen